=== PATIENT | female | born 1960 | race Caucasian/White ===

== ENCOUNTER 2018-10-23 12:10 | Emergency (ER) | payer BC, SELFPAY ==
[2018-10-23 12:15] VITALS: BP 165/85; PULSE 78; RESP 18; TEMP 36.7; O2SAT 98
[2018-10-23 12:27] VITALS: RESP 18
--- NOTE | 2018-10-23 13:10 | ED.GENADUL_ITS ---
Discharge Plan Disposition Patient Disposition: HOME Condition: Stable Discharge Details Chief Complaint: GenMedical Clinical Impression: Grief reaction, Elevated blood pressure reading Primary Care Provider: Molly Ross ED Provider: Orion Ramos Home Meds and New Rx's Prescriptions: Continued acetaminophen [Acetaminophen Extra Strength] 500 MG tablet 1,000 mg PO QID Qty: 100 RF: 12 gabapentin 300 mg capsule 300 mg PO as directed Qty: 270 RF: 12 hydrochlorothiazide 25 mg tablet 25 mg PO DAILY Qty: 90 RF: 4 citalopram 20 mg tablet 20 mg PO DAILY Qty: 90 RF: 4 ibuprofen 600 mg tablet 600 mg PO BID RF: 0 Discharge Instructions Instructions: Grief and Loss (ED), Hypertension (ED) Additional Instructions: Return immediately to the emergency department for any new or worsening symptoms. Otherwise stay well-hydrated and take medication as prescribed and follow-up with your primary care provider for reassessment Referrals: Molly Ross MD, [place] [Primary Care Provider] - 10/26/18 10:20 am Discharge Data Discharge Date/Time-TO BE ENTERED AT DEPARTURE: 10/23/18 13:40 Medical Decision Making Patient presenting to the emergency department for chief complaint of emotional grieving, syncope, and high blood pressure. Patient states that 3 days ago her significant other of 22 years suddenly and she found him lying on the floor and called 911. The ambulance crew checked her blood pressure which was elevated at that time but she refused coming to the emergency department. Patient did have multiple syncopal episodes during the event and throughout the evening after it occurred. Patient does state ongoing history of syncopal episodes with emotionally charged events such as when 1 of her children got hurt and when her first . She states Fridays night episode was very similar to the past. Patient denies hitting her head and states that she has been very tearful causing a intermittent headache but otherwise denies any focal neurological deficits, chest pain, shortness of breath. Physical exam is unremarkable with normal neurologic exam, normal cardiac and respiratory exam. Patient is present with sister whom states that they are mostly concerned about the emotional state that she has in and that previously she had been on antidepressants when her first . Patient also states this. Thorough discussion of elevated blood pressure was had with patient and blood pressure is mildly elevated today but patient has no signs of hypertensive urgen cy or emergency. Also did discuss with patient emotional emergencies and she states no homicidal or suicidal ideations and is alert and oriented.. I do feel it is reasonable to contact patient's primary care provider to discuss possible blood pressure control given the patient states history of elevated blood pressure readings along with starting patient on antidepressant. Spoke with Dr. Jose whom stated she would call hydrochlorothiazide in for the patient for blood pressure control and citalopram for depression. Otherwise I do not feel that there is any need for emergency work-up of labs, imaging, or further testing given that all of this seems to be surrounded by of loved one which is reasonable. Return precautions discussed. After discussion of diagnosis and plan of care patient had no further needs, questions, or concerns and states clear understanding to return to the emergency department for any worsening symptoms. HPI General Mode of arrival: ambulatory . Date/Time Provider Initiated Documentation: 10/23/18 12:21 . Limitations to Documentation: no limitations . Information obtained by: patient, family and RN notes reviewed . History of Present Illness 58 year old F presents to the emergency department with the chief complaint of Emotional grieving, syncope, described as similar to prior episodes, Quality is described as other (Denies pain), Patient started experiencing this day(s) (3) and it has been now resolved (Syncope resolved). Patient notes no other symptoms.. Patient did receive the following treatments prior to arrival, none Related Data Home Medications Medication Instructions Recorded Confirmed acetaminophen [Acetaminophen Extra 1,000 mg PO QID #100 tab-cap 11/16/16 10/23/18 Strength] gabapentin 300 mg capsule 300 mg PO as directed #270 tab-cap 09/01/18 10/23/18 citalopram 20 mg tablet 20 mg PO DAILY #90 tab 10/23/18 hydrochlorothiazide 25 mg tablet 25 mg PO DAILY #90 tab 10/23/18 ibuprofen 600 mg PO BID 10/23/18 10/23/18 Previous Rx's Medication Instructions Recorded gabapentin 300 mg capsule 300 mg PO as directed #270 tab-cap 09/01/18 citalopram 20 mg tablet 20 mg PO DAILY #90 tab 10/23/18 hydrochlorothiazide 25 mg tablet 25 mg PO DAILY #90 tab 10/23/18 Allergies Allergy/AdvReac Type Severity Reaction Status Date / Time Penicillins Allergy Intermediate unknown Unverified 10/23/18 12:18 happened as child, was told to neve use General Stated Complaint: GenMedical ALEKSANDAR: 3 Review of Systems Constitutional Denies chills, Denies fever(s), Reports headache(s) (Intermittent) and Denies malaise ENT Reports headache(s) (Intermittent) Cardiovascular Denies chest pain, Denies chest pain with activity, Reports syncope, Denies irregular heart rhythm, Denies palpitations and Denies dyspnea Respiratory Denies cough, Denies hemoptysis and Denies dyspnea Gastrointestinal Denies abdominal pain, Denies nausea and Denies vomiting Neurologic Reports syncope, Reports headache(s) (Intermittent), Denies focal weakness, Denies memory loss and Denies seizure-like activity Psychiatric Denies anxiety and Denies memory loss Endocrine Denies palpitations [facility] Surgical History BACK SURGERY Family History Mother No problems noted. Father Neoplasm Sister No problems noted. Brother No problems noted. Brother No problems noted. Brother No problems noted. Son No problems noted. Daughter No problems noted. Grandfather Neoplasm Grandfather No problems noted. Grandmother Asthma Grandmother No problems noted. Other Alcohol abuse Social History Smoking/Tobacco Use Status: Former Tobacco Use Drug use: Never Do you feel safe at home: Yes Do you feel safe in your relationship?: Yes Exam Const General: cooperative, healthy appearing, comfortable, no acute distress, not diaphoretic and not ill appearing Nutritional Appearance: average body habitus Orientation: alert, awake and oriented x3 Limitations: mental status not altered Neck Neck: normal visual inspection, full ROM, trachea midline, supple and no anterior neck swelling Thyroid: thyroid normal Carotids: normal carotid upstroke and no bruits Chest Chest: normal inspection of the chest Resp Effort & Inspection: normal respiratory effort and able to speak in complete sentences Auscultation: clear to auscultation bilaterally Cardio Jugular venous pressure: no JVD Palpation: normal PMI Rate: regular rate Rhythm: regular rhythm Heart Sounds: S1 normal, S2 normal, no click, no gallops, no murmurs and no rubs Bruits: no abdominal aortic bruits and no carotid bruits Pulses: radial pulses present bilaterally 2+ Skin General skin exam: no rashes or lesions noted Neuro General: alert, awake, oriented x3, tone normal and moves all extremities Course Vital Signs Temperature 36.7 C 10/23/18 12:15 Pulse 78 10/23/18 12:15 Respiratory Rate 18 10/23/18 12:15 Blood Pressure 165/85 H 10/23/18 12:15 Pulse Oximetry 98 10/23/18 12:15 Temperature 36.7 C 10/23/18 12:15 Pulse 78 10/23/18 12:15 Respiratory Rate 18 10/23/18 12:27 Respiratory Effort Non-Labored 10/23/18 12:27 Respiratory Depth Normal 10/23/18 12:27 Respiratory Pattern Normal 10/23/18 12:27 Blood Pressure 165/85 H 10/23/18 12:15 Pulse Oximetry 98 10/23/18 12:15 Oxygen Delivery Method Room Air 10/23/18 12:15 Oxygen Flow Rate 0 10/23/18 12:15 Pain Level 0 10/23/18 12:15
[2018-10-23 13:41] VITALS: BP 165/85; PULSE 78; RESP 18; TEMP 36.7; O2SAT 98
== END 2018-10-23 13:40 | disposition home or self-care (01) ==
PROVIDERS: Emergency Provider Nurse Practitioner Family; PCP Family Medicine
DX: F43.20 Adjustment disorder, unspecified (principal); R03.0 Elevated blood-pressure reading, without diagnosis of hypertension
CPT/HCPCS: 99283

== ENCOUNTER 2018-11-08 00:56 | Outpatient (CLI) | payer BC, SELFPAY ==
--- NOTE | 2018-11-08 06:41 | DI.US_ITS ---
SYMPTOM/DIAGNOSIS: DIARRHEA, ABD PAIN, AFTER EATING, R10.9 ABDOMEN ULTRASOUND: The aorta and vena cava are normal The liver is echogenic consistent with fatty infiltration. Cholelithiasis is demonstrated. The gallbladder wall may be mildly thickened. No pericholecystic fluid is evident. There is no evidence of ductal dilatation. The pancreas is unremarkable. The spleen is normal. The left kidney measures 10.2 by 4.8 by 5.3 cm. The right kidney measures 11.6 by 4.5 by 6.5 cm. SUMMARY: Findings consistent with a fatty liver and cholelithiasis. There may be mild thickening of the gallbladder wall. No pericholecystic fluid is demonstrated. There is no ductal dilatation and nothing specific to suggest acute cholecystitis.
== END 2018-11-08 01:16 ==
PROVIDERS: PCP Family Medicine; Visit Provider Family Medicine
DX: R10.9 Unspecified abdominal pain (principal); R19.7 Diarrhea, unspecified; K76.0 Fatty (change of) liver, not elsewhere classified; K80.20 Calculus of gallbladder without cholecystitis without obstruction
CPT/HCPCS: 76700

== ENCOUNTER 2018-12-04 02:32 | Outpatient (CLI) | payer BC, SELFPAY ==
[2018-12-04 11:00] LABS: ALT 24 U/L (12-78); AST 16 U/L (15-37); Albumin 3.8 g/dL (3.4-5.0); Alkaline Phosphatase 61 U/L (46-116); Anion Gap 8.9 mmol/L (3-11); BUN 18 mg/dL (7-18); Bilirubin, Total 0.4 mg/dL (0.2-1.0); CO2 28.1 mmol/L (21.0-32.0); CREATININE 0.75 mg/dL (0.55-1.02); Calcium 8.7 mg/dL (8.5-10.1); Calculated LDL 158; Chloride 106 mmol/L (98-107); Cholesterol 254 mg/dL (50-200); Glucose 110 mg/dL (70-100); HDL Cholesterol 48 mg/dL (40-60); Potassium 3.9 mmol/L (3.5-5.1); Sodium 143 mmol/L (136-145); TSH (W/Ref FT4) 2.41 uIU/mL (0.358-3.74); Total Protein 6.8 g/dL (6.4-8.2); Triglyceride 241 mg/dL (30-150)
== END 2018-12-04 02:52 ==
PROVIDERS: PCP Family Medicine; Visit Provider Family Medicine
DX: F32.9 Major depressive disorder, single episode, unspecified (principal); I10 Essential (primary) hypertension
CPT/HCPCS: 36415; 80053; 80061; 83721; 84443

== ENCOUNTER 2019-01-03 00:35 | Outpatient (CLI) | payer BC, SELFPAY ==
--- NOTE | 2019-01-03 13:52 | MERGE_ITS ---
*[facility]* *[facility]* [address] [place] [address] Date of study: 01/03/2019 Transthoracic Echocardiography M-mode, complete 2D, complete spectral Doppler, and color Doppler *STUDY CONCLUSIONS* Summary: 1. Left ventricle: The cavity size was normal. Wall thickness was normal. Systolic function was vigorous. The estimated ejection fraction was 65-70%. There was no dynamic obstruction. Wall motion was normal; there were no regional wall motion abnormalities. 2. Right ventricle: The cavity size was normal. Wall thickness was normal. Systolic function was normal. *PATIENT PRESENTATION* Height: 165.1cm (65in ) S/D Pressure: 139 / 74 Weight: 90.3kg (198.6lb ) BSA: 2.07m^2 Test start time: 02:11 PM. Test stop time: 03:00 PM. REFERRING Molly Ross PERFORMING Unknown PERFORMING [facility] ORDERING Precious Marin REFERRING Precious Marin [employer] Africa Thornton RT (R)(CT), [facility] *PROCEDURE DATA* Procedure information: This study was interpreted by [facility]. Pertinent images and digital data are archived for permanent storage and are available for subsequent review. No prior study was available for comparison. Study status: Routine. Transthoracic echocardiography. M-mode, complete 2D, complete spectral Doppler, and color Doppler. A Transthoracic Echocardiogram was performed. Scanning was performed from the parasternal, apical, subcostal, and suprasternal notch acoustic windows. Images were obtained using an [id number] cardiac ultrasound machine. Image quality was adequate. Study completion: The patient tolerated the procedure well. There were no complications. History: PMH: New cardiac murmur r01.1. *CARDIAC ANATOMY* Left ventricle: The cavity size was normal. Wall thickness was normal. Systolic function was vigorous. The estimated ejection fraction was 65-70%. There was no dynamic obstruction. Wall motion was normal; there were no regional wall motion abnormalities. Diastolic parameters were normal. Aortic valve: Trileaflet; normal thickness leaflets. Mobility was not restricted. Doppler: Transvalvular velocity was within the normal range. There was no stenosis. There was no significant regurgitation. VTI ratio of LVOT to aortic valve: 0.64. Valve area (VTI): 1.7cm^2. Indexed valve area (VTI): 0.8cm^2/m^2. Peak velocity ratio of LVOT to aortic valve: 0.66. Valve area (Vmax): 1.8cm^2. Indexed valve area (Vmax): 0.8cm^2/m^2. Mean velocity ratio of LVOT to aortic valve: 0.72. Valve area (Vmean): 1.9cm^2. Indexed valve area (Vmean): 0.9cm^2/m^2. Mean gradient (S): 5.5mm Hg. Peak gradient (S): 14.3mm Hg. Aorta: Aortic root: The aortic root was normal in size. Ascending aorta: The ascending aorta was normal in size. Mitral valve: Structurally normal valve. Mobility was not restricted. Doppler: Transvalvular velocity was within the normal range. There was no evidence for stenosis. There was no significant regurgitation. Valve area by pressure half-time: 3.8cm^2. Indexed valve area by pressure half-time: 1.8cm^2/m^2. Peak gradient (D): 5.8mm Hg. Left atrium: The atrium was normal in size. Right ventricle: The cavity size was normal. Wall thickness was normal. Systolic function was normal. Pulmonic valve: Structurally normal valve. Doppler: Transvalvular velocity was within the normal range. There was no evidence for stenosis. There was no significant regurgitation. Peak gradient (S): 2.7mm Hg. Tricuspid valve: Structurally normal valve. Doppler: Transvalvular velocity was within the normal range. There was no evidence for stenosis. There was no significant regurgitation. Pulmonary artery: Systolic pressure could not be accurately estimated. Right atrium: The atrium was normal in size. Pericardium: There was no pericardial effusion. Systemic veins: Inferior vena cava: Well visualized. The vessel was patent and normal in size. The respirophasic diameter changes were in the normal range (greater than or equal to 50%). Baseline ECG: Sinus bradycardia. Measurements Left ventricle Value Reference LV ID, ED, PLAX 4.4 cm 3.5 - 6.0 LV ID, ES, PLAX 2.6 cm 2.1 - 4.0 LV PW thickness, ED, PLAX 1.0 cm LV end-diastolic volume, 1-p A2C 70 ml LV ejection fraction, 1-p A2C 64 % LV end-diastolic volume, 1-p A4C 83 ml LV ejection fraction, 1-p A4C 71 % LV e', lateral 0.118 m/sec LV E/e', lateral 10 LV e', medial 0.074 m/sec LV E/e', medial 16 LV e', average 0.096 m/sec LV E/e', average 13 Ventricular septum Value Reference IVS thickness, ED, PLAX 1.2 cm LVOT Value Reference LVOT ID, A-P 1.8 cm LVOT area 2.7 cm^2 LVOT peak velocity, S 1.25 m/sec LVOT mean velocity, S 0.79 m/sec LVOT VTI, S 26.3 cm LVOT peak gradient, S 6.3 mm Hg LVOT mean gradient, S 2.9 mm Hg Stroke volume (SV), LVOT DP 70 ml Stroke index (SV/bsa), LVOT DP 34 ml/m^2 Aortic valve Value Reference Aortic valve peak velocity, S 1.9 m/sec Aortic valve mean velocity, S 1.1 m/sec Aortic valve VTI, S 41.0 cm Aortic mean gradient, S 5.5 mm Hg Aortic peak gradient, S 14.3 mm Hg VTI ratio, LVOT/AV 0.64 Aortic valve area, VTI 1.7 cm^2 Velocity ratio, peak, LVOT/AV 0.66 Aortic valve area, peak velocity 1.8 cm^2 Velocity ratio, mean, LVOT/AV 0.72 Aortic valve area, mean velocity 1.9 cm^2 Aortic valve area/bsa, mean velocity 0.9 cm^2/m^2 Aorta Value Reference Aortic root ID, ED 2.6 cm Ascending aorta ID, A-P, S 3.0 cm Left atrium Value Reference LA ID, A-P, ES 4.7 cm LA ID/bsa, A-P (H) 2.3 cm/m^2 <=2.2 LA volume/bsa, ES, 1-p A4C 29 ml/m^2 LA volume, ES, 2-p 46 ml LA volume/bsa, ES, 2-p 22 ml/m^2 LA/aortic root ratio 1.78 Mitral valve Value Reference Mitral E-wave peak velocity 1.21 m/sec Mitral A-wave peak velocity 0.83 m/sec Mitral deceleration time 200 ms 150 - 230 Mitral pressure half-time 58 ms Mitral peak gradient, D 5.8 mm Hg Mitral E/A ratio, peak 1.45 Mitral valve area, PHT, DP 3.8 cm^2 Pulmonary veins Value Reference Pulmonary vein peak velocity, S 0.72 m/sec Pulmonary vein peak velocity, D 0.81 m/sec Pulmonary vein velocity ratio, peak, 0.89 S/D Pulmonary vein A-wave reversal peak 0.32 m/sec velocity Pulmonary vein A-wave reversal 171 ms duration Tricuspid valve Value Reference Tricuspid regurg peak velocity 2.6 m/sec Tricuspid peak RV-RA gradient 26.2 mm Hg Right atrium Value Reference RA area, ES, A4C 12.5 cm^2 8.3 - 19.5 Pulmonic valve Value Reference Pulmonic peak gradient, S 2.7 mm Hg Pulmonic regurg velocity, ED 0.81 m/sec Legend: (L) and (H) swati values outside specified reference range. I have personally reviewed the images and have reviewed and edited the reported findings. Electronically signed by Thony York 01/03/2019 15:39
== END 2019-01-03 00:55 ==
PROVIDERS: PCP Family Medicine; Visit Provider Surgery
DX: R01.1 Cardiac murmur, unspecified (principal)
CPT/HCPCS: 93306

== ENCOUNTER 2019-06-12 12:26 | Outpatient (REF) | payer BC, SELFPAY ==
--- NOTE | 2019-06-12 11:30 | PAPFT_PTH ---
PATIENT: Luci Aburto LOC: [facility] U#:[id number] AGE/SX: 58/F ROOM: RE06/12/[address]: Molly Ross MD, DC : 1960 BED: DIS: 06/12/2019 SPEC #: [id number] RECD: 06/12/19 12:55 STATUS: MICK REQ #: [id number] DOTTIE: 06/12/19 11:[address]: Molly Ross DEPT: [facility] Cytology RECD BY: Juanis Dykes Tissues: 1 - CX/ENDOCX FOR PAP SMEARS Procedures: PAP THIN PREP/UVM Screening HPV DNA PROBE Comments: [id number]
== END 2019-06-12 12:46 ==
LOC: LBN 12:26
PROVIDERS: PCP Family Medicine; Visit Provider Family Medicine
DX: Z12.4 Encounter for screening for malignant neoplasm of cervix (principal); Z11.51 Encounter for screening for human papillomavirus (HPV)
CPT/HCPCS: 88142; 87624

== ENCOUNTER 2019-07-11 01:21 | Outpatient (CLI) | payer BC, SELFPAY ==
--- NOTE | 2019-07-11 16:20 | DI.MAMMO_ITS ---
EXAM: MAMMO SCREENING CLINICAL HISTORY: screening Z12.39 TECHNIQUE: Mammograms were interpreted according to the usual protocol including computer analysis w [employer] CAD system, tomosynthesis and C-view imaging. FINDINGS: The breasts are of moderate density with fairly symmetrical distribution of fibroglandular tissue. N o dominant mass or clumped microcalcification is identified in either breast. Current examination is compared with previous examinations including December 2015 and there has been no gross interval change in appearance in comparison with the previous studies. IMPRESSION: No specific evidence of malignancy at this time. Routine screening examinations are suggested at year ly intervals due to the family history of breast carcinoma. Category 1. Breast density, category,B. BI-RADS Cat 1 - Negative. Breast Density - Category B - Scattered areas of fibroglandular density.
== END 2019-07-11 01:41 ==
PROVIDERS: PCP Family Medicine; Visit Provider Family Medicine
DX: Z12.31 Encounter for screening mammogram for malignant neoplasm of breast (principal); Z80.3 Family history of malignant neoplasm of breast
CPT/HCPCS: 77063; 77067

== ENCOUNTER 2019-08-22 01:53 | Outpatient (CLI) | payer BC, SELFPAY ==
--- NOTE | 2019-08-22 15:00 | DI.CTLCSR_ITS ---
EXAM: CT CHEST LUNG CANCER SCREEN CLINICAL HISTORY: The patient reportedly has a History of Smoking 30 pack years and presently smokes or has quit the past 15 years. TECHNIQUE: Imaging Protocol: Axial computed tomography images with coronal and sagittal reformatted images were created and reviewed COMPARISON: CHEST WITH CONTRAST from 08/31/2016 FINDINGS: Tracheobronchial tree: Patent where visualized. Mediastinum and Precious: No dominant adenopathy or fluid collection. Pulmonary parenchyma: No consolidation or dominant measurable mass. No architectural distortion. Mini mal scarring and minimal emphysematous changes. Lung Nodules: None. Pleura: No effusion or pneumothorax. Heart: The heart is not dilated. No coronary artery calcifications are seen. Aorta: Thoracic aorta non-dilated. Minimal aortic calcification. Upper abdomen: Unremarkable. Bones: Degenerative disc changes are prominent in the midthoracic region. Soft Tissues: Unremarkable. IMPRESSION: Lung RADS Cat 1 - Negative: No nodules and definitely benign nodules. Annual low-dose screening CT i s recommended. Lung-RADS 1.0 CATEGORIES: Category 0 - Prior chest CT exam(s) being located for comparison. Category 1 - Annual screening in 12 months. No nodules or definitely benign nodules. Category 2 - Annual screening in 12 months. Benign appearance. Nodules with low likelihood of becomin g active cancer. Category 3 - 6-month follow-up. Probably benign. Short-term follow-up suggested. Nodules with low lik elihood of becoming active cancer. Category 4A - 3-month follow-up and CT/PET if >8 mm in size. Suspicious finding. Findings which requi re additional testing. Category 4B - Findings which require additional testing and tissue sampling. Suspicious finding. C Added to Any of the Above - History of prior lung cancer screening. S Added to Any of the Above - Significant unexpected other finding. RADIATION DOSE DELIVERED: DATA REPOSITORY: All CT scans at this facility are submitted to the National Radiology Data Registry (NRDR) Dose Index Registry (DIR) with the [employer] (ACR). RADIATION OPTIMIZATION: All CT scans at this facility use at least one of these dose optimization te chniques: automated exposure control; mA and/or kV adjustment per patient size (includes targeted exa ms where dose is matched to clinical indication); or iterative reconstruction.
== END 2019-08-22 02:13 ==
PROVIDERS: PCP Family Medicine; Visit Provider Family Medicine
DX: Z12.2 Encounter for screening for malignant neoplasm of respiratory organs (principal); Z87.891 Personal history of nicotine dependence
CPT/HCPCS: G0297

== ENCOUNTER 2020-06-10 02:58 | Outpatient (CLI) | payer BC, SELFPAY ==
[2020-06-10 13:17] LABS: ALT 30 U/L (14-59); AST 19 U/L (15-37); Albumin 3.8 g/dL (3.4-5.0); Alkaline Phosphatase 51 U/L (46-116); Anion Gap 7.8 mmol/L (3-11); BUN 18 mg/dL (7-18); Bilirubin, Total 0.3 mg/dL (0.2-1.0); CO2 29.2 mmol/L (21.0-32.0); CREATININE 0.94 mg/dL (0.55-1.02); Calcium 8.8 mg/dL (8.5-10.1); Calculated LDL 130 mg/dL (<100); Chloride 106 mmol/L (98-107); Cholesterol 235 mg/dL (<200); Glucose 109 mg/dL (74-106); HDL Cholesterol 50 mg/dL (40-60); Potassium 3.9 mmol/L (3.5-5.1); Sodium 143 mmol/L (136-145); Total Protein 6.9 g/dL (6.4-8.2); Triglyceride 275 mg/dL (<150)
[2020-06-11 10:25] LABS: Hepatitis C Ab w Rflx HCV PCR Negative (Negative)
== END 2020-06-10 03:18 ==
PROVIDERS: PCP Family Medicine; Visit Provider Family Medicine
DX: Z00.00 Encounter for general adult medical examination without abnormal findings (principal); Z13.220 Encounter for screening for lipoid disorders; Z11.59 Encounter for screening for other viral diseases
CPT/HCPCS: 36415; 80053; 80061; 86803

== ENCOUNTER 2021-05-05 12:58 | Outpatient (CLI) | payer OTHER, SELFPAY ==
--- NOTE | 2021-05-05 12:00 | DI.RAD_ITS ---
Exam(s) XR THUMB LT EXAM: XR THUMB LT CLINICAL HISTORY: fall 05/04/21 - pain and swelling M79.646 TECHNIQUE: COMPARISON: No exams were available for comparison FINDINGS: Three views were obtained. There is moderate to severe loss of the cartilaginous joint space at the greater multangular 1st metacarpal joint. There may be slight narrowing of the cartilaginous joint s paces of the IP joints the hand including the thumb. Mild marginal osteophytes are noted at the grea ter multangular 1st metacarpal joint and the IP joints of the thumb. There is a tiny lin of calcific or ossific material at the volar aspect of the base of the distal p halanx. Although this is probably chronic, a small avulsion could not be excluded. Please correlate clinically. IMPRESSION: RADIATION DOSE DELIVERED: Total DLP
== END 2021-05-05 13:18 ==
PROVIDERS: PCP Family Medicine; Visit Provider Family Medicine
DX: M79.646 Pain in unspecified finger(s) (principal); R93.6 Abnormal findings on diagnostic imaging of limbs
CPT/HCPCS: 73140

== ENCOUNTER 2021-07-27 01:37 | Outpatient (CLI) | payer BC, SELFPAY ==
[2021-07-27 10:41] LABS: Hemoglobin A1C 6.4 % (<5.7)
[2021-07-27 11:05] LABS: ALT 34 U/L (14-59); AST 21 U/L (15-37); Alkaline Phosphatase 63 U/L (46-116); Anion Gap 9.8 mmol/L (3-11); BUN 16 mg/dL (7-18); Bilirubin, Total 0.4 mg/dL (0.2-1.0); CO2 28.2 mmol/L (21.0-32.0); CREATININE 0.8 mg/dL (0.55-1.02); Calcium 9.3 mg/dL (8.5-10.1); Chloride 103 mmol/L (98-107); Cholesterol 289 mg/dL (<200); Glucose 99 mg/dL (74-106); HDL Cholesterol 53 mg/dL (40-60); Potassium 3.9 mmol/L (3.5-5.1); Sodium 141 mmol/L (136-145); Total Protein 7.3 g/dL (6.4-8.2); Triglyceride 422 mg/dL (<150)
[2021-07-27 11:16] LABS: LDL CHOLESTEROL 170 mg/dL (<100)
== END 2021-07-27 01:38 | disposition home or self-care (01) ==
LOC: LBO 01:37
PROVIDERS: PCP Family Medicine; Visit Provider Family Medicine
DX: Z00.00 Encounter for general adult medical examination without abnormal findings (principal); E11.9 Type 2 diabetes mellitus without complications
CPT/HCPCS: 36415; 80053; 80061; 83721; 83036

== ENCOUNTER 2021-12-01 19:14 | Outpatient (CLI) | payer BC, SELFPAY ==
--- NOTE | 2021-12-01 19:30 | DI.RAD_ITS ---
Exam(s) XR FOOT RT COMPLETE EXAM: XR FOOT RT COMPLETE CLINICAL HISTORY: eval for fx. TECHNIQUE: 2D digital imaging was performed of the right foot. Three images were obtained. AP, obl ique and lateral views were obtained. COMPARISON: No exams were available for comparison FINDINGS: BONES: On the oblique view there is a cortical defect at the lateral aspect of the base of the distal phalanx of the great toe. Fracture cannot be excluded. Please correlate with patient's site of paulino n. No bony destructive lesion is seen. JOINTS: No dislocation present. SOFT TISSUE: Normal. IMPRESSION: Apparent cortical defect at the lateral aspect of the base of the distal phalanx of the great toe. T his may represent a fracture. Correlate with patient's site of pain. DATA REPOSITORY: RADIATION DOSE DELIVERED:
--- NOTE | 2021-12-01 20:45 | DI.VRAD_ITS ---
PROCEDURE INFORMATION: Exam: XR Right Foot Exam date and time: 12/01/2021 7:40 PM Age: 61 years old Clinical indication: Patient HX: Right foot pain, eval for FX TECHNIQUE: Imaging protocol: Radiologic exam of the Right foot. Views: 3 or more views. COMPARISON: No relevant prior studies available. FINDINGS: Bones/joints: Normal. Soft tissues: Normal. IMPRESSION: No evidence for acute posttraumatic abnormality. Dictated and Authenticated by: Izzy Talley MD. Ordering:SOBEIDA Andrews MD
== END 2021-12-01 19:34 ==
PROVIDERS: PCP Family Medicine; Visit Provider Nurse Practitioner Family
DX: M79.671 Pain in right foot (principal); M20.5X1 Other deformities of toe(s) (acquired), right foot
CPT/HCPCS: 73630

== ENCOUNTER → 2022-01-29 00:30 | Outpatient (CLI) | payer BC, SELFPAY ==
--- OUTSIDE RECORDS SUMMARY | 2022-01-29 00:31 | XMS_ITS | Encounter Summary ---
:1960 Author Organization [facility] Address [address] [place] [address] Care Team Providers Name Role Phone Unknown, Provider Primary Care Provider Encounter Details Date Type Department Care Team Description 12/09/2015 Results Only [facility] Molly Ross MD [phone] [place] [phone] (Wo rk) Social History Tobacco Use Types Packs/Day Years Used Date Never Assessed Sex Assigned at Date Recorded Not on file documented as of this encounter Plan of Treatment Not on filedocumented as of this encounter Procedures Procedure Name Priority Date/Time Associated Diagnosis Comme nts PAP TEST- RESULT Routine 12/09/2015 0:00 EDT Resu lts for this ONLY procedure are i n the results section. documented in this encounter Results PAP TEST- RESULT ONLY (12/09/2015 0:00 EDT) Pathology Report: CYTOPATHOLOGY REPORT [facility] Reports generated via electronic interface contain lew ginal data; SERVICES however they are lacking the format of the original re port. Caution should be taken when reading/interpreting unfo rmatted reports. Name: ? AIXA DELGADO ? Accession #: ? [id number] ? : ? 1960 (Age: [age]) ??F ?Collect Date: ? 12/09/2015 ? Location: ? [facility] ? Receive Date: ? 12/11/19 16 ? Provider: MOLLY ROSS MD Copy to: ? Final Report SPECIMEN ADEQUACY ? Satisfactory for Evaluation - transformation zone component present GENERAL CATEGORIZATION ? Negative for Intraepithelial Lesion or Malignan cy INTERPRETATION ? Reactive cellular lj nges associated with inflammation present (includes repair). Shift in nico present suggestive of bacterial vaginos is. 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 KAITY GRANT MD ? Report ??Date: 12/25/2015 11:40 HPV with Pap Test ? Date Ordered: ? 12/25/2015 ? Status: ?? Signed Out ?Date Complete: ? 12/29/2015 ? By: ??Sy stem Interface ? Date Reported: ? 12/29/2015 ? Interpretation RESULT: Negative for HPV. No E6 or E7 mRNA is detected from HPV types 16,18,31,3 3,35, 39,45,51,52,56,58,59,66, and 68 by business continuity director media garfield amplification. Comments Document reviewed and electronically signed by: ? System Interface ? Report date: 12/29/2015 By the signature above, the attending physician certif ies that he/she has personally conducted a gross and/or microscopic examin ation of the described specimens and rendered or confirmed the above diagnosi s. End of Report Specimen Performing Organization Address City/State/ZIP Code Phon e Number [facility] [address] [place] [address] SERVICES documented in this encounter Visit Diagnoses Not on filedocumented in this encounter Care Teams Heating Plant Superintendent Relationship Specialty Start Date End Date Unknown, Provider, PCP - General 04/19/15 documented as of this encounter
--- OUTSIDE RECORDS SUMMARY | 2022-01-29 00:31 | XMS_ITS | Encounter Summary ---
:1960 Author Organization [facility] Address [address] [place] [id number] Care Team Providers Name Role Phone Unavailable Primary Care Provider Unavailable Encounter Details Date Type Department Care Team Description 12/12/2012 Results Only [facility] Elida Ross MD Laboratory Services - [address] [place] [address] [address] [place] [phone] (Wo rk) Social History Tobacco Use Types Packs/Day Years Used Date Never Assessed Sex Assigned at Date Recorded Not on file documented as of this encounter Plan of Treatment Not on filedocumented as of this encounter Procedures Procedure Name Priority Date/Time Associated Diagnosis Comme nts PAP TEST- RESULT Routine 12/12/2012 0:00 EDT Resu lts for this ONLY procedure are i n the results section. documented in this encounter Results PAP TEST- RESULT ONLY (12/12/2012 0:00 EDT) Pathology Report: CYTOPATHOLOGY REPORT [facility] Reports generated via electronic interface contain lew ginal data; however they are lacking the format of the original re port. Caution should be taken when reading/interpreting unfo rmatted reports. Name: ? AIXA DEGLADO ? Accession #: ? [id number] ? : ? 1960 (Age: 52) ??F ?Collect Da te: ? 12/12/2012 ? Location: ? [facility] ? Receive Date: ? 013 ? Provider: JIMY ROSS MD Copy to: ? Final Report SPECIMEN ADEQUACY ? Satisfactory for Evaluation - transformation zone component present GENERAL CATEGORIZATION ? Negative for Intraepithelial Lesion or Malignan cy INTERPRETATION ? Reactive cellular lj nges associated with inflammation present (includes repair). Menstrual/ Status: ??Post Menopausal Specimen/Source: ??Pap Test, Cervix/Endocervix, ThinPr ep Imaging System with manual evaluation Document reviewed and electronically signed by: ? SOBEIDA FOLEY MD [facility] ? Report ??Date: 12/25/2012 10:34 HPV with Pap Test ? Date Ordered: ? 12/25/2012 ? Status: ?? Signed Out ?Date Complete: ? 12/27/2012 ? By: ??S ystem Interface ? Date Reported: ? 12/27/2012 ? Interpretation RESULT: Negative for HPV. No E6 or E7 mRNA is detected from HPV types 16,18,31,3 3,35, 39,45,51,52,56,58,59,66, and 68 by tree specialist media garfield amplification. Comments Document reviewed and electronically signed by: ? System Interface ? Report date: 12/27/2012 By the signature above, the attending physician certif ies that he/she has personally conducted a gross and/or microscopic examin ation of the described specimens and rendered or confirmed the above diagnosi s. End of Report Specimen Performing Organization Address City/State/ZIP Code Phon e Number [facility] [address] [place] [address] SERVICES [facility] [address] [place] [address] documented in this encounter Visit Diagnoses Not on filedocumented in this encounter
--- OUTSIDE RECORDS SUMMARY | 2022-01-29 00:31 | XMS_ITS | Encounter Summary ---
:1960 Author Organization [facility] Address [address] [place] [address] Care Team Providers Name Role Phone Unknown, Provider MD Primary Care Provider Encounter Details Date Type Department Care Team Description 06/14/2019 Lab Requisition [facility] Molly Ross, Encounter for other Pathology & MD general examination Laboratory Medicine [address] [place] [address] [address] [place] [address] [phone] Social History Tobacco Use Types Packs/Day Years Used Date Never Assessed Sex Assigned at Date Recorded Not on file documented as of this encounter Plan of Treatment Not on filedocumented as of this encounter Procedures Procedure Name Priority Date/Time Associated Comments Diagnosis PAP TEST Today 06/12/2019 11:30 Encounter for other Resu lts for this EST general examination procedur e are in the results section. HUMAN PAPILLOMAVIRUS Today 06/12/2019 11:30 Encounter for ot her Results for this (HPV) DETECTION-HIGH EST general examination procedure are in RISK TYPES the results section. documented in this encounter Results HUMAN PAPILLOMAVIRUS (HPV) DETECTION-HIGH RISK TYPES (06/12/2019 11:30 EST) Pathologist Sig nature Human Papillomavirus Negative Negative [facility] (HPV) Detection-High LABORATORY SERVICES Types Specimen Pap Test - Cervix and/or Endocervix Performing Organization Address City/State/ZIP Code Phon e Number [facility] [address] [place] [address] SERVICES PAP TEST (06/12/2019 11:30 EST) Specimens A. Cervix and/or [facility] Endocervix, , CENTER ThinPrep Imaging LABORATORY System with Manual SERVICES Evaluation Specimen Adequacy Satisfactory for [facility] Evaluation - CENTER transformation zone LABORATORY component present SERVICES General Negative for [facility] Categorization intraepithelial CENTER lesion or malignancy LABORATORY SERVICES Descriptive Shift in nico [facility] Diagnosis present suggestive of CENTER bacterial vaginosis. LABORATORY SERVICES Attestation . [facility] signed by KIARA Mac CT(ASCP) on SERVICES 06/21/2019 at 131 3 Clinical History SEE ORDER COMMENTS [facility] SERVICES HPV The result for the Human Pap illomavirus (HPV) Detection-High Risk Types is Negative. No E6 or E7 mRNA is detected from HPV types 16,18,31,33,35,39,45,51,52,56,58,59,66, and 68 by cylinder press operator helper mediated [facility] amplification.Testing was pe rformed on specimen [id number] and was resulted on 06/19/2019 1846 EST by KAYE, LAB INSTRUMENT RESULTS IN [facility] SERVICES Scanned Images [facility] SERVICES Specimen Pap Test - Cervix and/or Endocervix Performing Organization Address City/State/ZIP Code Phon e Number [facility] [address] [place] [address] SERVICES documented in this encounter Visit Diagnoses Diagnosis Encounter for other general examination documented in this encounter Care Teams It Compliance Manager Relationship Specialty Start Date End Date Unknown, Provider, PCP - General 04/19/15 documented as of this encounter
--- OUTSIDE RECORDS SUMMARY | 2022-01-29 00:31 | XMS_ITS | Encounter Summary ---
:1960 Author Organization [facility] Address [facility] [place] [address] Care Team Providers Name Role Phone Kayode Gabriel MD, Surya Primary Care Provider Encounter Details Date Type Department Care Team Description 07/21/2015 Interpretation Only [facility] [address] [place] [address] PATTI Beasley [phone] Social History Tobacco Use Types Packs/Day Years Used Date Never Assessed Sex Assigned at Date Recorded Not on file documented as of this encounter Plan of Treatment Not on filedocumented as of this encounter Procedures Procedure Name Priority Date/Time Associated Diagnosis Comme nts XR FLUORO NO RAD Routine 07/21/2015 6:26 AM Resul ts for this <1HR - RADIOLOGY EST procedure a re in USE the results section. documented in this encounter Results XR Fluoro <1Hr - Radiology Use (07/21/2015 6:26 AM EST) Anatomical Region Laterality Modality N/A Radiographic Imaging Specimen (Source) Anatomical Collection Method Collection Time Re ceived Time Location / / Volume Laterality 07/21/2015 6:26 AM EST Narrative 07/21/2015 6:26 AM EST [facility] Historical Result Principal Margarine Churn Operator: ??CYNDY ??ACOST A C-ARM: HISTORY: ??Right L3-4 MLD. COMPARISON: ??None. FINDINGS: Fluoroscopy was provided for Dr Sharma. ? ?No Radiologist was present for the procedure. ??Three image-intensifier images of the lateral lumbosacral spine were archived to PACS, demonstrating radiopaque instruments in the posterior soft tissue s centered at L3-4. ??Please refer to separate procedure report. ??Total fluoro time equals 8.5 seconds. ??The estimated cumulative dose is 7.15 mGy. Cyndy Jimenez, MD Sam [id number] Procedure Note Unknown - 12/11/2018Formatting of this n ote might be different from the original. [facility]D Historical Result Principal Margarine Churn Operator: CYNDY JIMENEZ C-ARM: HISTORY: Right L3-4 MLD. COMPARISON: None. FINDINGS: Fluoroscopy was provided for Dr Sharma. N o Radiologist was present for the procedure. Three image-intensifier images of the lateral lumbosacral spine were archived to PACS, demonstrating radiopaque instruments in the posterior soft tissue s centered at L3-4. Please refer to separate procedure report. Total fluoro time equals 8.5 se conds. The estimated cumulative dose is 7.15 mGy. Cyndy Jimenez MD Sam [id number] Unknown IMG FLUORO ORDERABLES documented in this encounter Visit Diagnoses Not on filedocumented in this encounter Care Teams Die Casting Machine Maintainer Relationship Specialty Start Date End Date Surya Headley MD PCP - General 05/05/[address] [place] [phone] documented as of this encounter
--- OUTSIDE RECORDS SUMMARY | 2022-01-29 00:31 | XMS_ITS | Encounter Summary ---
:1960 Author Organization [facility] Address [address] [place] [address] Care Team Providers Name Role Phone Unavailable Primary Care Provider Unavailable Encounter Details Date Type Department Care Team Description 01/17/2007 Results Only [facility] - William Baumann PA conversion [address] [phone] Social History Tobacco Use Types Packs/Day Years Used Date Never Assessed Sex Assigned at Date Recorded Not on file documented as of this encounter Plan of Treatment Not on filedocumented as of this encounter Procedures Procedure Name Priority Date/Time Associated Diagnosis Comme nts CYTOPATHOLOGY Routine 01/17/2007 0:00 EDT Results for this procedure are i n the results section . documented in this encounter Results CYTOPATHOLOGY (01/17/2007 0:00 EDT) Pathology Report: CYTOPATHOLOGY REPORT [facility] Reports generated via electronic interface contain lew ginal data; however they are lacking the format of the original re port. Caution should be taken when reading/interpreting unfo rmatted reports. Name: ? AIXA DELGADO ? Accession #: ? [id number] : ? 1960 (Age: 46) ??F ?Collect Date: ? 12/2006 Location: ? [facility] ? Receive Date : ? 01/18/2007 Provider: ?WILLIAM HASKINS Copy to: ? Specimen/Source: ?ThinPrep Pap Test, E ndocervix, processed on [email or web address] ThinPrep Imaging System, with manual evaluation Last Menstrual Period: ? Menstrual/ Status: ? Post Menopausal Other: ? HPVA - HPV testing requested if ASC-US on the current ThinPrep Pap test. ? SPECIMEN ADEQUACY ? Satisfactory for Evaluation - transformation zone component present GENERAL CATEGORIZATION ? Negative for Intraepithelial Lesion or Malignan cy ? Document reviewed and electronically signed by: ? ALLYN Castorena(ASCP) ? Report Date: ??01/23/2007 11:57 End of Report Specimen Performing Organization Address City/State/ZIP Code Phon e Number [facility] [address] [place] [address] SERVICES [facility] [address] [place] [address] documented in this encounter Visit Diagnoses Not on filedocumented in this encounter
--- NOTE | 2022-01-29 07:15 | DI.MAMMO_ITS ---
Exam(s) MAMMO SCREENING EXAM: MAMMO SCREENING CLINICAL HISTORY: screening,z12.39 TECHNIQUE: Mammograms were interpreted according to the usual protocol including computer analysis w [employer] CAD system, tomosynthesis and C-view imaging. COMPARISON: 2012 through 2019 FINDINGS: The breasts are composed of mainly fatty density , Breast Density category A. No suspicious masses or suspicious microcalcifications are seen. No skin thickening or abnormal axillary lymph nodes are seen. There has been no significant change from prior exams. IMPRESSION: BI-RADS Category 1, Negative mammogram Yearly screening mammography is recommended. Breast Density - Category A, fatty density. A negative radiographic report should not delay biopsy if a dominant or clinically suspicious mass is present. Up to ten percent of cancers are not identified on mammography. A negative report may reinforce clinical impression. Adenosis and dense breasts may obscure an underlying neoplasm. False positive reports average 6 to 10%. Patient will receive a letter notifying them of these results.
== END ==
PROVIDERS: PCP Family Medicine; Visit Provider Family Medicine
DX: Z12.31 Encounter for screening mammogram for malignant neoplasm of breast (principal)
CPT/HCPCS: 77063; 77067

== ENCOUNTER 2022-08-06 01:47 | Outpatient (CLI) | payer BC, SELFPAY ==
[2022-08-06 13:09] LABS: Hemoglobin A1C 6.4 % (<5.7)
[2022-08-06 13:22] LABS: Microalb ug/mg Crea 17.2 ug/mg Cr
[2022-08-06 13:41] LABS: ALT 31 U/L (14-59); AST 20 U/L (15-37); Albumin 4.1 g/dL (3.4-5.0); Alkaline Phosphatase 58 U/L (46-116); Anion Gap 8.5 mmol/L (3-11); BUN 20 mg/dL (7-18); Bilirubin, Total 0.4 mg/dL (0.2-1.0); CO2 29.5 mmol/L (21.0-32.0); CREATININE 0.8 mg/dL (0.55-1.02); Calcium 9.5 mg/dL (8.5-10.1); Chloride 106 mmol/L (98-107); Cholesterol 301 mg/dL (<200); Estimated GFR 82.74 (mL/min/1.73m2); Glucose 124 mg/dL (74-106); HDL Cholesterol 57 mg/dL (40-60); Potassium 3.8 mmol/L (3.5-5.1); Sodium 144 mmol/L (136-145); Total Protein 7.5 g/dL (6.4-8.2); Triglyceride 410 mg/dL (<150)
[2022-08-06 13:53] LABS: LDL CHOLESTEROL 177 mg/dL (<100)
== END 2022-08-06 01:48 | disposition home or self-care (01) ==
LOC: LOS 01:47
PROVIDERS: PCP Family Medicine; Visit Provider Family Medicine
DX: Z00.00 Encounter for general adult medical examination without abnormal findings (principal); E11.9 Type 2 diabetes mellitus without complications; I10 Essential (primary) hypertension
CPT/HCPCS: 36415; 80053; 80061; 83721; 82043; 82570; 83036

== ENCOUNTER 2022-08-16 09:23 | Outpatient (REF) | payer BC, SELFPAY ==
--- NOTE | 2022-08-16 08:30 | PAPFT_PTH ---
PATIENT: Luci Aburto LOC: [facility] U#:[id number] AGE/SX: 61/F ROOM: RE08/16/[address]: Molly Ross MD, DC : 1960 BED: DIS: 08/16/2022 SPEC #: [id number] RECD: 08/16/22 13:14 STATUS: MICK REQ #: [id number] DOTTIE: 08/16/22 08:[address]: Molly Ross [facility] Cytology RECD BY: Juanis Dykes Tissues: 1 - CX/ENDOCX FOR PAP SMEARS Procedures: PAP THIN PREP/[facility] Screening HPV DNA PROBE Comments: [id number]
== END 2022-08-16 09:24 | disposition home or self-care (01) ==
LOC: LBN 09:23
PROVIDERS: PCP Family Medicine; Visit Provider Family Medicine
DX: Z12.4 Encounter for screening for malignant neoplasm of cervix (principal); Z11.51 Encounter for screening for human papillomavirus (HPV)
CPT/HCPCS: 88142; 87624

== ENCOUNTER → 2023-02-10 00:07 | Outpatient (CLI) | payer BC, SELFPAY ==
--- NOTE | 2023-02-10 08:15 | DI.DEXA_ITS ---
Exam(s) XR DEXA BONE DENSITY W/WO LIEN EXAM: XR DEXA BONE DENSITY W/WO LIEN CLINICAL HISTORY: post menopausal, Z78.0 asymptomatic menopausal state TECHNIQUE: COMPARISON: No exams were available for comparison FINDINGS: Lateral Spine Image: Unremarkable. No compression deformities identified. Left hip: Total T-Score: -1.2 Total Z-Score: 0.0 T- and Z-scores: Findings are consistent with osteopenia. Lumbar Spine: Total T-Score: 0.4 Total Z-Score: 2.1 T- and Z-scores: Within normal limits. IMPRESSION: No evidence of osteoporosis.
--- NOTE | 2023-02-10 08:15 | DI.MAMMO_ITS ---
Exam(s) MAMMO SCREENING EXAM: MAMMO SCREENING CLINICAL HISTORY: screening, Z12.39 TECHNIQUE: Bilateral full field digital CC and MLO mammographic images were obtained with 3D tomosyn thesis and utilizing computer aided detection (CAD). COMPARISON: Available for comparison. FINDINGS: Masses/Architectural Distortion: None seen. Microcalcifications: No suspicious pleomorphic-type are seen. Benign stable type calcifications are s een in both breasts. Skin Thickening/Nipple Retraction: None. IMPRESSION: 1. No significant interval change with no specific features of malignancy noted. 2. Unless there is more urgent need, screening mammography is recommended, as per [employer] guidelines. BI-RADS Category 1 - Negative Breast Density - Category A - Almost entirely fatty Breast density category C or D implies that the patient has dense breast tissue. Dense breast tissue is very common and is not abnormal but dense breast tissue can make it harder to find cancer on a ma mmogram. Also, dense breast tissue may increase their breast cancer risk. This information about the result of the mammogram report was provided to the patient to raise their awareness. Use this report when you speak with the patient about their risks for breast cancer, which includes their family hist ory. At that time, you may recommend for more screening tests (Ultrasound or MRI) as they might be us eful based on their risk. A negative radiographic report should not delay biopsy if a dominant or clinically suspicious mass is present. Up to ten percent of cancers are not identified on mammography. A negative report may reinforce clinical impression. Adenosis and dense breasts may obscure an underlying neoplasm. False positive reports average 6 to 10%. Patient will receive a letter notifying them of these results.
== END ==
PROVIDERS: PCP Family Medicine; Visit Provider Family Medicine
DX: Z12.31 Encounter for screening mammogram for malignant neoplasm of breast (principal); Z78.0 Asymptomatic menopausal state; Z13.820 Encounter for screening for osteoporosis
CPT/HCPCS: 77063; 77067; 77080

== ENCOUNTER 2023-08-19 01:11 | Outpatient (CLI) | payer BC, SELFPAY ==
[2023-08-19 12:05] LABS: Abs Immature Grans 0.03 10^3/uL (0.0-0.06); Absolute Basophil Count 0.07 10^3/uL (0.0-0.2); Absolute Eosinophil Count 0.11 10^3/uL (0.0-0.7); Absolute Lymphocyte Count 1.77 10^3/uL (1.2-3.4); Absolute Monocyte Count 0.62 10^3/uL (0.1-0.8); Absolute Neutrophil Count 3.79 10^3/uL (1.2-6.7); Basophils % 1.1; Eosinophils % 1.7; HCT 37.6 % (36.0-46.0); HGB 12.5 g/dL (11.2-15.7); Immature Grans % 0.5; Lymphocytes % 27.7; MCH 29.3 pg (27.0-33.0); MCHC 33.2 % (32.0-36.0); MCV 88 fL (80-95); MPV 12.2 fL (8.0-11.0); Monocytes % 9.7; Neutrophils % 59.3; Platelet Count 249 10^3/uL (130-400); RBC 4.26 10^6/uL (3.93-5.22); RDW 14.1 % (11.7-14.6); RDW-SD 45.2 fL; WBC 6.39 10^3/uL (4.4-10.8)
[2023-08-19 12:17] LABS: ALT 27 U/L (14-59); AST 17 U/L (15-37); Albumin 3.8 g/dL (3.4-5.0); Alkaline Phosphatase 64 U/L (46-116); Anion Gap 11.2 mmol/L (3-11); BUN 18 mg/dL (7-18); Bilirubin, Total 0.3 mg/dL (0.2-1.0); CO2 27.8 mmol/L (21.0-32.0); CREATININE 0.8 mg/dL (0.55-1.02); Calcium 9.2 mg/dL (8.5-10.1); Chloride 104 mmol/L (98-107); Estimated GFR 82.23 (mL/min/1.73m2); Glucose 122 mg/dL (74-106); Potassium 3.6 mmol/L (3.5-5.1); Sodium 143 mmol/L (136-145); Total Protein 7.3 g/dL (6.4-8.2)
== END 2023-08-19 01:12 | disposition home or self-care (01) ==
LOC: LOS 01:13
PROVIDERS: PCP Family Medicine; Visit Provider Nurse Practitioner Family
DX: K52.9 Noninfective gastroenteritis and colitis, unspecified (principal)
CPT/HCPCS: 36415; 80053; 85025

== ENCOUNTER → 2023-09-02 00:47 | Outpatient (CLI) | payer BC, SELFPAY ==
--- NOTE | 2023-09-02 06:30 | DI.RAD_ITS ---
Exam(s) XR CHEST 2V PA LATERAL EXAM: XR CHEST 2V PA LATERAL CLINICAL HISTORY: SOB,R06.02. TECHNIQUE: 2D digital imaging was performed. COMPARISON: No exams were available for comparison FINDINGS: 2 views: Heart size is normal. The mediastinum is not widened. Lungs are clear. No infiltrates nor pleural effusions. IMPRESSION: No acute pulmonary findings. DATA REPOSITORY: RADIATION DOSE DELIVERED:
--- NOTE | 2023-09-02 06:30 | DI.RAD_ITS ---
Exam(s) XR THORACIC SPINE COMPLETE EXAM: XR THORACIC SPINE COMPLETE CLINICAL HISTORY: thoracic pain,M54.6. TECHNIQUE: 2D digital imaging was performed. COMPARISON: No exams were available for comparison FINDINGS: 3 views No evidence of acute fracture or listhesis. There are multilevel anterior osteophytes. No prominent disc space narrowing. No abnormal widening of the paraspinal lines. No scoliosis. No osseous lesi ons. IMPRESSION: No acute osseous findings in the thoracic spinal column. DATA REPOSITORY: RADIATION DOSE DELIVERED:
== END ==
PROVIDERS: PCP Family Medicine; Visit Provider Family Medicine
DX: M54.6 Pain in thoracic spine (principal); R06.02 Shortness of breath
CPT/HCPCS: 71046; 72072

== ENCOUNTER 2024-06-22 11:10 | Observation (INO) | payer BC, SELFPAY ==
[2024-06-22] VITALS (69 sets, daily range): BP systolic 130–202; BP diastolic 47–87; PULSE 46–63; RESP 10–20; TEMP 36.7–37; O2SAT 87–100
--- NOTE | 2024-06-22 12:00 | DI.CT_ITS ---
Exam(s) CT HEAD CERVICAL SPINE WO EXAM: CT HEAD CERVICAL SPINE WO CLINICAL HISTORY: fall, head impact. TECHNIQUE: Imaging Protocol: Axial computed tomography images with coronal and sagittal reformatted images were created and reviewed COMPARISON: No exams were available for comparison FINDINGS: CT Head: Ventricles and Extra axial spaces: Normal in size and morphology for the patient's age. Hemorrhage: None. Cerebral parenchyma: Evidence of an acute territorial infarct. No mass effect. Midline shift: None. Brainstem/Cerebellum: Normal. Calvarium: Normal. Visualized Paranasal sinuses/Mastoids: Clear. Soft Tissues: Unremarkable. CT Cervical Spine: Bones: No acute fracture or subluxation. Age-appropriate degenerative changes are seen in the cervica l spine. Soft Tissues: Unremarkable. Lung Apices: Clear. IMPRESSION: 1. No acute intracranial process. 2. No acute fracture or subluxation in the cervical spine. RADIATION DOSE DELIVERED: 1,367.13mGy.cm Total DLP DATA REPOSITORY: All CT scans at this facility are submitted to the National Radiology Data Registry (NRDR) Dose Index Registry (DIR) with the [employer] (ACR). RADIATION OPTIMIZATION: All CT scans at this facility use at least one of these dose optimization te chniques: automated exposure control; mA and/or kV adjustment per patient size (includes targeted exa ms where dose is matched to clinical indication); or iterative reconstruction.
[2024-06-22] MEDS: HYDROmorphone 2 MG/ML SYR 1 MG IVP (12:32)
[2024-06-22] MEDS: Omnipaque 350 MG/ML 100 ML BTL IJ (12:49)
[2024-06-22] MEDS: Normal Saline - Diluent 50 ML VIAL IJ (12:49)
--- NOTE | 2024-06-22 12:52 | W.ED.GENAD ---
Discharge Plan Discharge Details Chief Complaint: Fall/Non TraumaCriteria Clinical Impression: Closed fracture of T8 vertebra, Fall Primary Care Provider: Molly Ross ED Provider: Emerson Graves Home Meds and New Rx's Prescriptions: No Action vitamin B complex [B Complex-Vitamin B12] tablet 1 tab PO DAILY multivitamin [Daily Multi-Vitamin] Tablet 1 tab PO DAILY losartan 100 mg tablet 100 mg PO DAILY Qty: 90 4RF trazodone 50 mg tablet 50 - 100 mg PO QHS Qty: 180 5RF gabapentin 300 mg capsule 300 mg PO as directed Qty: 270 4RF Rx Instructions: 1 tab pm2 tab am omeprazole 40 mg capsule,delayed release(DR/EC) 40 mg PO DAILY Qty: 90 3RF acetaminophen [Acetaminophen Extra Strength] 500 mg tablet 1,000 mg PO QID PRNQty: 100 citalopram 20 mg tablet 20 mg PO DAILY Qty: 90 4RF potassium chloride 20 mEq tablet extended release 20 meq PO DAILY Qty: 90 5RF hydrochlorothiazide 25 mg tablet 25 mg PO DAILY Qty: 90 4RF ibuprofen 600 mg tablet 600 mg PO BID PRN HPI General Mode of arrival: EMS. Date/Time Provider Initiated Documentation: 06/22/24 11:29. Limitations to Documentation: no limitations. Information obtained by: patient. HPI Narrative: 63-year-old female with history of multiple medical problems, here after slip and fall down 3 stairs with injury to her back. Patient notes she directly impacted her back on multiple steps as she fell. She has pain in her mid to upper back centrally and on the right. Pain is severe and constant. Worse with movement. Patient also notes right elbow pain. She states she struck her right posterior elbow during the fall. She did hit her head. Mother who is here and witnessed the fall and notes she struck her head hard on the stairs. No LOC. Related Data Home Medications ?Medication ?Instructions ?Recorded ?Confirmed acetaminophen 500 mg tablet 1,000 mg PO QID PRN #100 tab-caps 10/26/18 06/22/24 (Acetaminophen Extra Strength) ibuprofen 600 mg tablet 600 mg PO BID PRN 10/26/18 06/22/24 vitamin B complex (B 1 tab PO DAILY 10/26/18 06/22/24 Complex-Vitamin B12 tablet) multivitamin (Daily Multi-Vitamin 1 tab PO DAILY 06/16/20 06/22/24 tablet) omeprazole 40 mg capsule,delayed 40 mg PO DAILY #90 caps 07/22/23 06/22/24 release citalopram 20 mg tablet 20 mg PO DAILY #90 tabs 08/08/23 06/22/24 potassium chloride 20 mEq 20 meq PO DAILY #90 tabs 08/08/23 06/22/24 tablet,extended release gabapentin 300 mg capsule 300 mg PO as directed #270 tab-caps 08/29/23 06/22/24 losartan 100 mg tablet 100 mg PO DAILY #90 tabs 08/29/23 06/22/24 trazodone 50 mg tablet 50 - 100 mg (1 - 2 x 50 mg) PO QHS 08/29/23 06/22/24 #180 tabs hydrochlorothiazide 25 mg tablet 25 mg PO DAILY hypertension #90 10/19/23 06/22/24 tabs Previous Rx's ?Medication ?Instructions ?Recorded omeprazole 40 mg capsule,delayed 40 mg PO DAILY #90 caps 07/22/23 release citalopram 20 mg tablet 20 mg PO DAILY #90 tabs 08/08/23 potassium chloride 20 mEq 20 meq PO DAILY #90 tabs 08/08/23 tablet,extended release gabapentin 300 mg capsule 300 mg PO as directed #270 tab-caps 08/29/23 losartan 100 mg tablet 100 mg PO DAILY #90 tabs 08/29/23 trazodone 50 mg tablet 50 - 100 mg (1 - 2 x 50 mg) PO QHS 08/29/23 #180 tabs hydrochlorothiazide 25 mg tablet 25 mg PO DAILY hypertension #90 10/19/23 tabs Allergies Allergy/AdvReac Type Severity Reaction Status Date / Time adhesive tape Allergy Intermediate severe Verified 06/22/24 11: skin break down. Penicillins Allergy Intermediate unknown Unverified 06/22/24 11:25 happened as child, was told to neve use General Stated Complaint: Fall/Non TraumaCriteria ALEKSANDAR: 3 Review of Systems All systems reviewed & are unremarkable except as noted in HPI and below Exam Const General: cooperative HENMT Head: normocephalic Mouth: moist mucous membranes Eyes Conjunctivae: normal conjunctivae Sclera: normal sclerae Neck Neck: trachea midline and supple Resp Auscultation: clear to auscultation bilaterally, no rales, no rhonchi and no wheezes Cardio Rate: regular rate and not tachycardic Rhythm: regular rhythm GI Palpation: soft, not firm, no guarding, no masses, not rigid and nontender Back/Spine/Pelvis Cervical Spine: collar present Thoracic/Lumbar Spine: thoracic spinal tenderness Skin General skin exam: no rashes or lesions noted Neuro General: patient alert, patient awake, patient oriented x3 and tone normal Extrem Right upper extremity: elbow/forearm Details: tenderness Location: of the olecranon, swelling, ecchymosis (posterior elbow) and distal pulses intact; no deformity Course Vital Signs Vital signs: Vital Signs Temperature 37 C 06/22/24 11:14 Pulse 58 L 06/22/24 11:14 Respiratory Rate 20 06/22/24 11:14 Blood Pressure 199/87 H 06/22/24 11:14 Pulse Oximetry 100 06/22/24 11:14 Temperature 37 C 06/22/24 11:14 Pulse 53 L 06/22/24 12:44 Pulse 54 L 06/22/24 12:44 Respiratory Rate 14 06/22/24 12:44 Blood Pressure 202/65 H 06/22/24 12:44 Blood Pressure Mean 119 06/22/24 12:44 Blood Pressure Position Sitting 06/22/24 11:14 Pulse Oximetry 96 06/22/24 12:44 Oxygen Delivery Method Room Air 06/22/24 11:14 Oxygen Flow Rate 0 06/22/24 11:14 Pain Level 8 06/22/24 12:32 Medical Decision Making 1300 --63-year-old female with multiple medical problems here after mechanical slip and fall down 3 stairs with injury to her back and right elbow. Patient did strike her head during the fall. Patient is uncomfortable. Hypertensive on arrival. Concern for acute life-threatening traumatic injury including potential for intracranial traumatic hemorrhage, pneumothorax, spinal fracture. Plan to obtain CT imaging. Consider also right elbow fracture. Will obtain x-ray. Dilaudid IV for pain. 1423 --CT of the chest abdomen pelvis with spinal reconstruction interpreted by radiology: IMPRESSION: 1. There is an acute fracture through the anterior aspect of the T8 vertebral body. No significant compression is seen at the fracture. The fracture does not involve the posterior wall or the posterior elements. 2. No acute pulmonary process. 3. No acute abdominal or pelvic organ injury. 4. Unremarkable CT scan of the chest. CT head and cervical spine interpreted by radiology: 1. No acute intracranial process. 2. No acute fracture or subluxation in the cervical spine. X-ray of the right elbow interpreted by radiology: Unremarkable radiographs of the right elbow. Suspect elbow contusion. Plan to discuss CT findings with trauma [facility] [place]. 6284 --significant delay in care speaking with transfer center at [facility] [place] and awaiting callback and then follow-up conversation with [facility] transfer center. When I spoke with orthopedic spine at [facility] [place], they are concerned about posterior fusion and potential unstable fracture not apparent on CT. They recommended MRI be performed as soon as possible to assess for fracture extension. They declined to accept the patient in transfer due to capacity. I then spoke with [facility] transfer center and transfer contact center director Dr. Estrada --they are also at capacity and unable to definitively accept the patient but would except the patient for MRI and potentially need to transfer back to [facility]. I contacted in-house radiology team and arranging for in-house MRI tonight. Lab Data Lab results reviewed: Yes I reviewed the patient's lab results. Labs: Laboratory Tests Range/Units 06/22/24 12:38 WBC (4.4-10.8) 10^3/uL 9.14 RBC (3.93-5.22) 10^6/uL 4.63 Hgb (11.2-15.7) g/dL 13.7 Hct (36.0-46.0) % 41.0 MCV (80-95) fL 89 MCH (27.0-33.0) pg 29.6 MCHC (32.0-36.0) % 33.4 RDW (11.7-14.6) % 14.1 Plt Count (130-400) 10^3/uL 233 MPV (8.0-11.0) fL 11.9 H Immature Gran % % 0.9 Neutrophils % % 75.2 Lymphocytes % % 14.9 Monocytes % % 7.5 Eosinophils % % 0.8 Basophils % % 0.7 Nucleated RBC % (0.0-0.3) % 0.0 Absolute Neutrophils (1.2-6.7) 10^3/uL 6.88 H Absolute Lymphocytes (1.2-3.4) 10^3/uL 1.36 Absolute Monocytes (0.1-0.8) 10^3/uL 0.69 Absolute Eosinophils (0.0-0.7) 10^3/uL 0.07 Absolute Basophils (0.0-0.2) 10^3/uL 0.06 Sodium (136-145) mmol/L 143 Potassium (3.5-5.1) mmol/L 3.8 Chloride (98-107) mmol/L 105 Carbon Dioxide (21.0-32.0) mmol/L 29.3 Anion Gap (3-11) mmol/L 8.7 BUN (7-18) mg/dL 22 H Creatinine (0.55-1.02) mg/dL 0.8 Est GFR (CKD-EPI 2020) (mL/min/1.73m2) 81.72 Glucose (74-106) mg/dL 112 H Calcium (8.5-10.1) mg/dL 9.7 Total Bilirubin (0.2-1.0) mg/dL 0.44 AST (15-37) U/L 27 ALT (14-59) U/L 38 Alkaline Phosphatase (46-116) U/L 70 Total Protein (6.4-8.2) g/dL 7.5 Albumin (3.4-5.0) g/dL 4.1 ABO/Rh O Positive Antibody Screen NEGATIVE Quality:SDOH Health Related Social Needs: No Data to Display PFSH All Active Problems (Updated 06/22/24 @ 17:36 by Emerson Graves MD) Fall (Acute) Closed fracture of T8 vertebra (Acute) Thoracic back pain (Acute) GERD (gastroesophageal reflux disease) (Chronic) Chronic diarrhea (Chronic) De Quervain's tenosynovitis, left (Chronic) Steroid injection: 12/12/2023 Stress due to illness of family member (Acute) Family history of breast cancer in first degree relative (Acute) Sister HERS 2 Shingles rash (Acute) Fall (Acute) Thumb pain (Acute) Grief (Chronic) Abscess (Acute) Gall bladder disease (Acute) Fatty liver (Acute) Abnormal chest x-ray (Acute 08/26/16) Grief (Acute) Essential hypertension (Acute) Cardiac risk alfonso - 7.3% Depression (Chronic) Annual physical exam (Acute 01/10/17) Left arm numbness (Acute 07/11/17) Low back pain due to displacement of intervertebral disc (Acute 11/22/12) vacuum disc 02/25 L3-4 disc herniation by MRI 03/27 Lumbar disc disease with radiculopathy (Acute 04/03/15) L3-4 disc herniation Shoulder joint pain (Acute 11/22/12) Medical History COVID-19 (~01/2021) Surgical History BACK SURGERY Family History Mother No problems noted. Father , age 59 Neoplasm KIDNEY Cancer of kidney Sister Breast cancer Brother Heart disease Brother No problems noted. Brother No problems noted. Son No problems noted. Daughter No problems noted. Maternal Grandfather Cancer Paternal Grandfather No problems noted. Maternal Grandmother Asthma Paternal Grandmother No problems noted. 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 Pets and animals: No Sexually active: Yes Do you think of yourself as: straight/heterosexual Current gender identity: female What is your relationship status?: How often do you talk on the phone with friends or family?: three or more times per week How often do you get together with friends or relatives?: three or more times per week How often do you attend sabianism or gnosticist services?: decline to answer Do you belong to any clubs or organized social groups?: no Panel score (0-1 are the most socially isolated patients): 1 What type of physical activity do you participate in: none Sarah/Faith: No preference Special sarah needs: No Seatbelt use: always Helmet use: Yes Helmet use: always Drive intox or ride w/intox courtesy bus driver: No Do you feel safe at home: Yes Do you feel safe in your relationship?: Yes Victim of physical abuse: No Victim of emotional abuse: No Victim of sexual abuse: No Would you like helpful sources: No
--- NOTE | 2024-06-22 12:53 | DI.CT_ITS ---
Exam(s) CT CHEST/ABD/PEL W CT THORACIC LUMBAR SPINE REC EXAM: CT CHEST/ABD/PEL W CLINICAL HISTORY: fall down stairs, rt upper back pain TECHNIQUE: Imaging Protocol: Axial computed tomography images with coronal and sagittal reformatted images were created and reviewed. Lung Computer Aided Detection (CAD) was utilized. CONTRAST MATERIAL: Intravenous: Omnipaque 350 contrast volume:100 mL Oral: No COMPARISON: CT CT CHEST LUNG CANCER SCREEN from 12/30/2022 FINDINGS: CHEST: Tracheobronchial tree: Patent where visualized. No evidence of bronchiectasis. Pulmonary parenchyma: No consolidation or dominant measurable mass. No architectural distortion. Ther e is atelectasis in the dependent portions of the lungs. Visualized thyroid gland: Unremarkable. Mediastinum and Precious: No dominant adenopathy or fluid collection. The esophagus is unremarkable. The re is a small hiatal hernia. Pleura: No effusion or pneumothorax. Heart: The heart is not dilated. No coronary artery calcifications are seen. No pericardial effusion. Pulmonary arteries: Due to the timing of the bolus, there is suboptimal opacification of the peripher al pulmonary arteries. No large central pulmonary embolism is present. Aorta: Thoracic aorta non-dilated. Atherosclerotic calcification is present. Lymph nodes: Within normal limits. Soft tissues: Unremarkable. Bones:Within normal limits for the patient's age. No displaced rib fractures are present. CT recons of the thoracic spine. Age-appropriate degenerative changes are seen in the thoracic spine . There is a new lucency seen through the anterior aspect of the T8 vertebral body consistent with an acute fracture. There is no extension into the posterior wall or posterior elements of the vertebra. CT recons of the lumbar spine: Age-appropriate degenerative changes are seen in the lumbar spine. The re is unilateral left spondylolysis at L5 without evidence of spondylolisthesis. No acute fracture or subluxation is present. ABDOMEN: Liver: Normal density. No measurable mass. Portal, Superior Mesenteric, and Splenic Veins: Unremarkable. Gallbladder and Biliary Tract: No radiodense calculus or dilation. Pancreas: Normal density, no abnormal calcifications or inflammatory process. Spleen: Normal. Adrenals: No masses seen. Kidneys: Normal size, contour and axis. No radiodense stones or obstructive uropathy. No masses seen. Abdominal Aorta: Abdominal portion non-dilated. Atherosclerotic calcification is present. Bowel: There is diverticulosis of the colon without evidence of acute diverticulitis. Appendix is unr emarkable. Peritoneal Cavity: No ascites, collection or mesenteric inflammatory response. No free air. Lymph Nodes: Within normal limits. Bones: Within normal limits for the patient's age. No acute fractures or subluxations. Soft Tissues: There is a small fat containing umbilical hernia. PELVIS: Bladder: Symmetric distention, no gross wall thickening. Reproductive Organs: There is a fibroid uterus. Lymph Nodes: Within normal limits. Bones: Within normal limits. No acute fractures or subluxations. IMPRESSION: 1. There is an acute fracture through the anterior aspect of the T8 vertebral body. No significant co mpression is seen at the fracture. The fracture does not involve the posterior wall or the posterior elements. 2. No acute pulmonary process. 3. No acute abdominal or pelvic organ injury. 4. Unremarkable CT scan of the chest. RADIATION DOSE DELIVERED: 1,152.23mGy.cm Total DLP DATA REPOSITORY: All CT scans at this facility are submitted to the National Radiology Data Registry (NRDR) Dose Index Registry (DIR) with the [employer] (ACR). RADIATION OPTIMIZATION: All CT scans at this facility use at least one of these dose optimization te chniques: automated exposure control; mA and/or kV adjustment per patient size (includes targeted exa ms where dose is matched to clinical indication); or iterative reconstruction.
[2024-06-22 12:55] LABS: Abs Immature Grans 0.08 10^3/uL (0.0-0.06); Absolute Basophil Count 0.06 10^3/uL (0.0-0.2); Absolute Eosinophil Count 0.07 10^3/uL (0.0-0.7); Absolute Lymphocyte Count 1.36 10^3/uL (1.2-3.4); Absolute Monocyte Count 0.69 10^3/uL (0.1-0.8); Absolute Neutrophil Count 6.88 10^3/uL (1.2-6.7); Basophils % 0.7 %; Eosinophils % 0.8 %; HGB 13.7 g/dL (11.2-15.7); Immature Grans % 0.9 %; Lymphocytes % 14.9 %; MCH 29.6 pg (27.0-33.0); MCHC 33.4 % (32.0-36.0); MCV 89 fL (80-95); MPV 11.9 fL (8.0-11.0); Monocytes % 7.5 %; Neutrophils % 75.2 %; Platelet Count 233 10^3/uL (130-400); RBC 4.63 10^6/uL (3.93-5.22); RDW 14.1 % (11.7-14.6); WBC 9.14 10^3/uL (4.4-10.8)
[2024-06-22 13:11] LABS: ALT 38 U/L (14-59); AST 27 U/L (15-37); Albumin 4.1 g/dL (3.4-5.0); Alkaline Phosphatase 70 U/L (46-116); Anion Gap 8.7 mmol/L (3-11); BUN 22 mg/dL (7-18); Bilirubin, Total 0.44 mg/dL (0.2-1.0); CO2 29.3 mmol/L (21.0-32.0); CREATININE 0.8 mg/dL (0.55-1.02); Calcium 9.7 mg/dL (8.5-10.1); Chloride 105 mmol/L (98-107); Estimated GFR 81.72 (mL/min/1.73m2); Glucose 112 mg/dL (74-106); Potassium 3.8 mmol/L (3.5-5.1); Sodium 143 mmol/L (136-145); Total Protein 7.5 g/dL (6.4-8.2)
--- NOTE | 2024-06-22 13:25 | DI.RAD_ITS ---
Exam(s) XR ELBOW RT COMPLETE EXAM: XR ELBOW RT COMPLETE CLINICAL HISTORY: pain, trauma. TECHNIQUE: 2D digital imaging was performed of the left elbow. Three images were obtained. AP, lat eral and oblique views were obtained. COMPARISON: No exams were available for comparison FINDINGS: BONES: No acute fracture is present. No bony destructive lesion is seen. JOINTS: The elbow is normally aligned. No joint effusion is seen. SOFT TISSUE: Normal. IMPRESSION: Unremarkable radiographs of the right elbow. DATA REPOSITORY: RADIATION DOSE DELIVERED:
--- NOTE | 2024-06-22 17:45 | DI.MRI_ITS ---
Exam(s) MR THORACIC SPINE WO EXAM: MR THORACIC SPINE WO CLINICAL HISTORY: fracture t8 .DISH TECHNIQUE: Multiplanar multisequence MRI of the thoracic spine was performed without intravenous con trast. COMPARISON: CT CT CHEST/ABD/PEL W from 06/22/[address] THORACIC LUMBAR SPINE REC from 06/22/2024 FINDINGS: Preceding CT scan reveals anterior DISH findings from T5 through T11, inclusive. MRI findings are as follows: OSSEOUS: There is a stellate fracture confined to the anterior half of T8 vertebral body, not associa garfield with significant height loss of this vertebral body nor wedging, giving the buttressing by the DI SH. Fracture lines do not extend to the posterior half of the vertebral body, and there is no involv ement of the posterior cortex. This is also confirmed on the T1 coronal images. Indeed, there is no obvious bone edema seen in the posterior half of the vertebral body on the fluid sensitive STIR imag es. There is some bone edema evident in the and anterior/inferior aspect of T11 vertebral body, also not associated with height loss. On the sagittal T1 images at this level there is a subtle suggestion of a possible subtle hypo intense nondisplaced fracture line, also in the anterior aspect of this verte bral body. T1 hypointense fracture line, however, is not visible on the coronal images at this level . Incidentally noted is a benign intraosseous hemangioma in the T12 vertebral body. DISC LEVELS: There are no significant disc herniations in the thoracic spinal column. No evidence of abnormal collection in the epidural space. No evidence of significant paraspinal hematoma. THORACIC SPINAL CORD: There is no abnormal signal in the cervical spinal cord and no evidence of foca l cord atrophy nor focal cord swelling. There is no evidence of syringomyelia nor significant spinal cord dysraphism. There is no evidence of mass at the conus medullaris. The position of the conus me dullaris is at L1 level. PARASPINAL TISSUES: No significant masses nor fluid collections evident. IMPRESSION: 1. In this patient with DISH the T8 vertebral body fracture is shown to be confined to the anterior h intermediate of the vertebral body. The fracture lines do not extend into the posterior aspect of the vertebr al body. The posterior cortex appears unremarkable, as do the pedicles. Indeed, there is minimal if any significant bone edema seen in the posterior half of the T8 vertebral body on the fluid sensitiv e STIR images. There are also no abnormal findings within the spinal canal at this level. 2. At the T11 level there is some signal abnormality evident within the anterior half of the vertebra l body not associated with height loss nor obvious demonstrable T1 hypointense fracture lines in mult iple planes.. Also no abnormality at the level the posterior cortex of this vertebral body. 3. No evidence of disc herniation, central spinal canal stenosis, foraminal stenosis epidural hematom a, nor significant paraspinal hematoma. Report called by myself to ER physician 06/22/2024 at 7:50 p.m. DATA REPOSITORY:
--- NOTE | 2024-06-22 18:01 | ED.PROG_ITS ---
Date of service: 06/22/24 Time of Service: 20:11 Medical Decision Making You are seen from outgoing provider. Patient is a 63-year-old female that had a fall today resulting in a T8 vertebral body fracture. The concern was the stability of the fracture and of time of signout, MRI was pending. The MRI has been obtained and does not demonstrate a full-thickness fracture of that vertebral body. The patient c-collar was removed. Given her body habitus, fracture and level of pain, the patient would benefit from hospitalization for physical therapy evaluation management as well as pain control. Patient has significant pain with any movement and feel that she is an additional fall risk at home and her only source of assistance is her very elderly and frail mother. This plan for hospitalization was discussed with the hospitalist by the off going physician. Patient affirms her decision to be admitted to the hospital for further management. Quality:SDOH Health Related Social Needs: No Data to Display Discharge Plan Disposition Patient Disposition: Admit to [facility] Condition: Stable Discharge Details Clinical Impression: Closed fracture of T8 vertebra, Fall Primary Care Provider: Molly Ross ED Provider: Kathleen Shrestha Home Meds and New Rx's Prescriptions: No Action vitamin B complex [B Complex-Vitamin B12] tablet 1 tab PO DAILY multivitamin [Daily Multi-Vitamin] Tablet 1 tab PO DAILY losartan 100 mg tablet 100 mg PO DAILY Qty: 90 4RF trazodone 50 mg tablet 50 - 100 mg PO QHS Qty: 180 5RF gabapentin 300 mg capsule 300 mg PO as directed Qty: 270 4RF Rx Instructions: 1 tab pm2 tab am omeprazole 40 mg capsule,delayed release(DR/EC) 40 mg PO DAILY Qty: 90 3RF acetaminophen [Acetaminophen Extra Strength] 500 mg tablet 1,000 mg PO QID PRNQty: 100 citalopram 20 mg tablet 20 mg PO DAILY Qty: 90 4RF potassium chloride 20 mEq tablet extended release 20 meq PO DAILY Qty: 90 5RF hydrochlorothiazide 25 mg tablet 25 mg PO DAILY Qty: 90 4RF ibuprofen 600 mg tablet 600 mg PO BID PRN
[2024-06-22] MEDS: LORazepam 0.5 MG TAB PO ×2 (18:19→22:25)
[2024-06-22] MEDS: Acetaminophen 500 MG TAB 1000 MG PO (18:26)
[2024-06-22] MEDS: MORPHine IR 15 MG TAB PO (20:12)
--- NOTE | 2024-06-22 21:27 | W.PC.ACHO ---
Registration Status: Primary Language: Preferred Language: ED Information & Data Chief Complaint Fall/Non TraumaCriteria 06/22/24 12:53 Triage Note Pt arrives to ED s/p fall 06/22/24 11:14 down approx. 3 stairs. Pt states she hit her RT buttock, c/o RT shoulder/ scapula pain. Pt also c/o RT elbow pain. Pt TTP - lower back. Pt also c/o c-spine tenderness w/ neck movement; c-collar applied in triage. No meds given by EMS [facility] Medical / Surgical History (Last Reviewed 03/27/24 @ 09:21 by DIVINE Woo) COVID-19 (~01/2021) (Last Reviewed 03/27/24 @ 09:21 by DIVINE Woo) BACK SURGERY Most Recent Vital Signs Temperature 37 C 06/22/24 11:14 Pulse 53 L 06/22/24 20:02 Pulse 49 L 06/22/24 16:16 Respiratory Rate 14 06/22/24 16:16 Blood Pressure 160/59 H 06/22/24 20:02 Blood Pressure Mean 87 06/22/24 20:02 Blood Pressure Position Sitting 06/22/24 11:14 Pulse Oximetry 96 06/22/24 20:02 Oxygen Delivery Method Nasal Cannula 06/22/24 13:27 Oxygen Flow Rate 2 06/22/24 13:27 Pain Level 5 06/22/24 18:26 Comment Pt resting. also given dilaudid. Placed on O2 06/22/24 13:30 Allergies adhesive tape Allergy (Intermediate, Verified 06/22/24 21:20) severe skin break down. Penicillins Allergy (Intermediate, Verified 06/22/24 21:20) unknown happened as child, was told to neve use Precautions Isolation Standard precaution 06/22/24 11:33 Active Medications Generic Name Dose Route Start Last Admin Trade Name Freq PRN Reason Stop Dose Admin Iohexol 100 ml 06/22/24 13:00 06/22/24 12:49 Omnipaque 350 Mg/Ml 100 Ml Btl IJ 07/22/24 23:59 100 ml DIRECTED PATRICIO Administration Lorazepam 0.5 mg 06/22/24 18:15 06/22/24 18:19 Lorazepam 0.5 Mg Tab PO 0.5 mg HS PATRICIO Administration Sodium Chloride 50 ml 06/22/24 13:00 06/22/24 12:49 Normal Saline - Diluent 50 Ml Vial IJ 50 ml .FOR DI USE PATRICIO Administration IV IV Catheter Type [Left Saline Lock Antecubital] IV Catheter Gauge [Left 20 Antecubital] Diet Orders Category Date Time Status Regular/Normal [DIET] Nutrition 06/23/24 Breakfast Ordered Diagnostics 06/22/24 Range/Units 12:38 WBC 9.14 (4.4-10.8) 10^3/uL RBC 4.63 (3.93-5.22) 10^6/uL Hgb 13.7 (11.2-15.7) g/dL Hct 41.0 (36.0-46.0) % MCV 89 (80-95) fL MCH 29.6 (27.0-33.0) pg MCHC 33.4 (32.0-36.0) % RDW 14.1 (11.7-14.6) % Plt Count 233 (130-400) 10^3/uL MPV 11.9 H (8.0-11.0) fL Immature Gran % 0.9 % Neutrophils % 75.2 % Lymphocytes % 14.9 % Monocytes % 7.5 % Eosinophils % 0.8 % Basophils % 0.7 % Nucleated RBC % 0.0 (0.0-0.3) % Absolute Neutrophils 6.88 H (1.2-6.7) 10^3/uL Absolute Lymphocytes 1.36 (1.2-3.4) 10^3/uL Absolute Monocytes 0.69 (0.1-0.8) 10^3/uL Absolute Eosinophils 0.07 (0.0-0.7) 10^3/uL Absolute Basophils 0.06 (0.0-0.2) 10^3/uL Sodium 143 (136-145) mmol/L Potassium 3.8 (3.5-5.1) mmol/L Chloride 105 (98-107) mmol/L Carbon Dioxide 29.3 (21.0-32.0) mmol/L Anion Gap 8.7 (3-11) mmol/L BUN 22 H (7-18) mg/dL Creatinine 0.8 (0.55-1.02) mg/dL Est GFR (CKD-EPI 2020) 81.72 (mL/min/1.73m2) Glucose 112 H (74-106) mg/dL Calcium 9.7 (8.5-10.1) mg/dL Total Bilirubin 0.44 (0.2-1.0) mg/dL AST 27 (15-37) U/L ALT 38 (14-59) U/L Alkaline Phosphatase 70 (46-116) U/L Total Protein 7.5 (6.4-8.2) g/dL Albumin 4.1 (3.4-5.0) g/dL ABO/Rh O Positive Antibody Screen NEGATIVE Intake and Output - 24 Hour Total 06/22/24 11:02 thru 06/22/24 12:48 Intake Total 60 Balance 60 Weight 95.254 kg Intake: IV 60 Falls Risk Assessment History of Falls Admit Due to Fall 06/22/24 11:33 Contributing Factors No Factors 06/22/24 11:33 Ambulatory Aids Independent 06/22/24 11:33 Tubes/Lines W/no contributing factors 06/22/24 11:33 Gait Evaluation W/no contributing factors 06/22/24 11:33 Cognition No cognitive impairment 06/22/24 11:33 Fall Total Score 45 06/22/24 11:33 Level of Risk Moderate Risk 06/22/24 11:33 v v v v v v v v v Sending and/or Receiving Nurses: Please use comment section below to note any information pertinent to the patient hand-off not included above. Information / Comments:Pt admit to ED by joe this am per fall outside store down 3 steps. T8 fx, pain to left scapula and head. A&O x 4. Admit for obs to med/surg. Follow up w/ PT and OT tomorrow. Pain control this evening. No numb or tingling, ruled out cervical fx. no c-collar att. Ambulate w/ assistance and walker, pt is fall risk. On 2 L O2 in ED for desat from morph. Taken off O2 prior to med/surg admit. Report received from:Jw VALIENTE, ED
[2024-06-22] MEDS: Gabapentin 300 MG CAP PO (22:25)
[2024-06-22] MEDS: Normal Saline Flush 10 ML SYR IVP (22:26)
--- NOTE | 2024-06-22 22:31 | W.PM.HP.N ---
Date of service: 06/22/24 Time of Service: 21:10 Assessment and Plan Assessment and plan (1) Closed fracture of T8 vertebra: Status: Acute Assessment and plan: Traumatic fracture from slip/fall. Intractable pain, will admit for pain management and IV hydromophone helping, will add ketoralac prn and an oral opioid option Mobilize with PT. (2) Lumbar disc disease with radiculopathy: Status: Acute Assessment and plan: Has some chronic pain a/w disc issue, which is what I assume the gabapentin is for. This is unrelated to her current presentation. (3) GERD (gastroesophageal reflux disease): Status: Chronic Assessment and plan: Continue outpatient therapy with citalopram. (4) Depression: Status: Chronic Assessment and plan: continue outpaitent medication (5) Essential hypertension: Status: Acute Assessment and plan: continue outpatient therapy with losartan and HCTZ (6) DVT prophylaxis: Status: Acute Assessment and plan: enoxaparin History of Present Illness History of Present Illness Chief Complaint: back pain Narrative: 63 yo F with history of hypertension, depression, and lumbar disc disease presenting after she slipped walking down icy stairs at a store in [place]. She missed 3 steps and slammed down on her mid back. She immediately had pain which made it difficult to move. Pain is sharp, no radiation, severe. She never had focal weakness or numbness in legs, groin, or elsehwere. No change in bowell or bladder function. Pain medication has helped, but she still can't get up around the room on her own. she also has some right elbow pain but can move it normally. Her left knee hurts but this is chornic. No LOC but she did hit the back of her head as well. Review of Systems All systems reviewed & are unremarkable except as noted in HPI and below PFSH All Active Problems (Updated 06/22/24 @ 22:36 by Surya Hutton) DVT prophylaxis (Acute) Fall (Acute) Closed fracture of T8 vertebra (Acute) Thoracic back pain (Acute) GERD (gastroesophageal reflux disease) (Chronic) Chronic diarrhea (Chronic) De Quervain's tenosynovitis, left (Chronic) Steroid injection: 12/12/2023 Stress due to illness of family member (Acute) Family history of breast cancer in first degree relative (Acute) Sister HERS 2 Shingles rash (Acute) Fall (Acute) Thumb pain (Acute) Grief (Chronic) Abscess (Acute) Gall bladder disease (Acute) Fatty liver (Acute) Abnormal chest x-ray (Acute 08/26/16) Grief (Acute) Essential hypertension (Acute) Cardiac risk alfonso - 7.3% Depression (Chronic) Annual physical exam (Acute 01/10/17) Left arm numbness (Acute 07/11/17) Low back pain due to displacement of intervertebral disc (Acute 11/22/12) vacuum disc 02/25 L3-4 disc herniation by MRI 03/27 Lumbar disc disease with radiculopathy (Acute 04/03/15) L3-4 disc herniation Shoulder joint pain (Acute 11/22/12) Medical History (Updated 06/22/24 @ 22:36 by Surya Hutton) COVID-19 (~01/2021) Surgical History (Updated 06/22/24 @ 22:33 by Surya Hutton) S/P tubal ligation BACK SURGERY Family History Mother No problems noted. Father , age 59 Neoplasm KIDNEY Cancer of kidney Sister Breast cancer Brother Heart disease Brother No problems noted. Brother No problems noted. Son No problems noted. Daughter No problems noted. Maternal Grandfather Cancer Paternal Grandfather No problems noted. Maternal Grandmother Asthma Paternal Grandmother No problems noted. 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 Pets and animals: No Sexually active: Yes Do you think of yourself as: straight/heterosexual Current gender identity: female What is your relationship status?: How often do you talk on the phone with friends or family?: three or more times per week How often do you get together with friends or relatives?: three or more times per week How often do you attend latter day or holiness services?: decline to answer Do you belong to any clubs or organized social groups?: no Panel score (0-1 are the most socially isolated patients): 1 What type of physical activity do you participate in: none Sarah/Cheondoism: No preference Special sarah needs: No Seatbelt use: always Helmet use: Yes Helmet use: always Drive intox or ride w/intox driver/sales workers: No Do you feel safe at home: Yes Do you feel safe in your relationship?: Yes Victim of physical abuse: No Victim of emotional abuse: No Victim of sexual abuse: No Would you like helpful sources: No Additional Social history: Lives in [place], mother also in home, 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 Meds Allergies and Home Medications Allergies Allergy/AdvReac Type Severity Reaction Status Date / Time adhesive tape Allergy Intermediate severe Verified 06/22/24 21:20 skin break down. Penicillins Allergy Intermediate unknown Verified 06/22/24 21:20 happened as child, was told to neve use Home Medications ?Medication ?Instructions ?Recorded ?Confirmed ?Type acetaminophen 500 mg tablet 1,000 mg PO QID PRN #100 tab-caps 10/26/18 06/22/24 History (Acetaminophen Extra Strength) ibuprofen 600 mg tablet 600 mg PO BID PRN 10/26/18 06/22/24 History vitamin B complex (B 1 tab PO DAILY 10/26/18 06/22/24 History Complex-Vitamin B12 tablet) multivitamin (Daily Multi-Vitamin 1 tab PO DAILY 06/16/20 06/22/24 History tablet) omeprazole 40 mg capsule,delayed 40 mg PO DAILY #90 caps 07/22/23 06/22/24 Rx release citalopram 20 mg tablet 20 mg PO DAILY #90 tabs 08/08/23 06/22/24 Rx potassium chloride 20 mEq 20 meq PO DAILY #90 tabs 08/08/23 06/22/24 Rx tablet,extended release gabapentin 300 mg capsule 300 mg PO as directed #270 tab-caps 08/29/23 06/22/24 Rx losartan 100 mg tablet 100 mg PO DAILY #90 tabs 08/29/23 06/22/24 Rx trazodone 50 mg tablet 50 - 100 mg (1 - 2 x 50 mg) PO QHS 08/29/23 06/22/24 Rx #180 tabs hydrochlorothiazide 25 mg tablet 25 mg PO DAILY hypertension #90 10/19/23 06/22/24 Rx tabs Exam Narrative Exam Narrative: GEN: Alert and oriented x 4, pleasant and cooperative, gives linear history. Lying in bed, uncomfortable with movement of torso with exam HEENT: Head atraumatic except bruise left forehead. Conjunctiva clear, no icterus. PEERL, EOMI. no rhinorrhea. MMM, OP benign. Neck is supple with no masses or lymphadenopathy, trachea midline LUNGS: CTAB with normal effort CV: RRR with no murmurs, gallops, or rubs. ABD: active bowel sounds, soft, nontender and nondistended. No masses. EXT: no cyanosis, clubbing, or edema MSK: No joint redness or swelling, tender in thoracic spine NEURO: CN 2-12 grossly intact. Normal strength and gross sensation 4 extremities. Normal speech and coordination. No tremor SKIN: No rashes or open wounds. PSYCH: normal mood and affect Results Imaging Imaging Studies: MRI thoracic spine: In this patient with DISH the T8 vertebral body fracture is shown to be confined to the anterior half of the vertebral body. The fracture lines do not extend into the posterior aspect of the vertebral body. The posterior cortex appears unremarkable, as do the pedicles. Indeed, there is minimal if any significant bone edema seen in the posterior half of the T8 vertebral body on the fluid sensitive STIR images. There are also no abnormal findings within the spinal canal at this level. 2. At the T11 level there is some signal abnormality evident within the anterior half of the vertebral body not associated with height loss nor obvious demonstrable T1 hypointense fracture lines in multiple planes.. Also no abnormality at the level the posterior cortex of this vertebral body. 3. No evidence of disc herniation, central spinal canal stenosis, foraminal stenosis epidural hematoma, nor significant paraspinal hematoma. CT C/A/P: 1. There is an acute fracture through the anterior aspect of the T8 vertebral body. No significant compression is seen at the fracture. The fracture does not involve the posterior wall or the posterior elements. 2. No acute pulmonary process. 3. No acute abdominal or pelvic organ injury. 4. Unremarkable CT scan of the chest. CT Head/spine: 1. No acute intracranial process. 2. No acute fracture or subluxation in the cervical spine. XR elbow: no fx Labs 06/22/24 12:38 06/22/24 12:38 Labs: Laboratory Results - last 24 hr 06/22/24 12:38 WBC 9.14 RBC 4.63 Hgb 13.7 Hct 41.0 MCV 89 MCH 29.6 MCHC 33.4 RDW 14.1 Plt Count 233 MPV 11.9 H Immature Gran % 0.9 Neutrophils % 75.2 Lymphocytes % 14.9 Monocytes % 7.5 Eosinophils % 0.8 Basophils % 0.7 Nucleated RBC % 0.0 Absolute Neutrophils 6.88 H Absolute Lymphocytes 1.36 Absolute Monocytes 0.69 Absolute Eosinophils 0.07 Absolute Basophils 0.06 Sodium 143 Potassium 3.8 Chloride 105 Carbon Dioxide 29.3 Anion Gap 8.7 BUN 22 H Creatinine 0.8 Est GFR (CKD-EPI 2020) 81.72 Glucose 112 H Calcium 9.7 Total Bilirubin 0.44 AST 27 ALT 38 Alkaline Phosphatase 70 Total Protein 7.5 Albumin 4.1 ABO/Rh O Positive Antibody Screen NEGATIVE Last Vital Signs Temp 36.7 C 06/22/24 21:44 Pulse 60 06/22/24 21:44 Resp 16 06/22/24 21:44 BP 184/81 H 06/22/24 21:44 Pulse Ox 97 06/22/24 21:44 PAWSS Have you Been Recently Intoxicated or Drunk Within the Last 30 days?: Unable to Obtain Have you Ever Experienced Previous Episodes of Alcohol Withdrawal?: Unable to Obtain Have you ever Experienced Withdrawal Seizures?: Unable to Obtain Have you ever Experienced Delirium Tremens(DT)s?: Unable to Obtain Have you ever undergone Alcohol Rehabilitation Treatment (i.e, inpt ot outpatient treatment programs)?: Unable to Obtain Have you ever Experienced Blackouts?: Unable to Obtain Have you ever Combined Alcohol with other Downers within the last 90 days?: Unable to Obtain Have you ever Combined Alcohol with any other Substance of Abuse during the last 90 days?: Unable to Obtain Positive Blood Alcohol level on Presentation? [PCS.BAL]: Unable to Obtain Evidence of Increased Autonomic Activity (i.e. HR>120, tremor, sweating, agitation, nausea)?: Unable to Obtain Time Spent Time spent with Patient: 55-74 minutes Time was spent: preparing to see the patient(eg.review tests), obtaining and/or reviewing separately otained hiistory, ordering medications,tests, procedures, referring, communicating with other health lawn care worker, indepentently interpreting results, counseling the patient and care coordination
[2024-06-23] VITALS (8 sets, daily range): BP systolic 126–184; BP diastolic 56–81; PULSE 54–61; RESP 15–16; TEMP 36.2–36.7; O2SAT 90–97
[2024-06-23] MEDS: traZODone 50 MG TAB 100 MG PO ×2 (00:18→20:25)
[2024-06-23] MEDS: Acetaminophen 325 MG TAB 650 MG PO ×6 (00:19→20:24)
[2024-06-23] MEDS: Ketorolac 15 MG/ML VIAL IVP (00:35)
[2024-06-23] MEDS: HYDROmorphone 2 MG TAB PO (04:51)
[2024-06-23] MEDS: Normal Saline Flush 10 ML SYR IVP ×3 (04:52→20:24)
[2024-06-23] MEDS: Gabapentin 300 MG CAP 600 MG PO (09:35)
[2024-06-23] MEDS: hydroCHLOROthiazide 25 MG TAB PO (09:35)
[2024-06-23] MEDS: Vitamins B Comp w/C TAB 1 TAB PO (09:35)
[2024-06-23] MEDS: Omeprazole 20 MG CAPCR 40 MG PO (09:35)
[2024-06-23] MEDS: Potassium Chloride 20 MEQ TABCR PO (09:36)
[2024-06-23] MEDS: Citalopram 20 MG TAB PO (09:36)
[2024-06-23] MEDS: Losartan 50 MG TAB 100 MG PO (09:36)
[2024-06-23] MEDS: Multivitamin TAB 1 TAB PO (09:37)
--- NOTE | 2024-06-23 09:41 | PDOC.CMIN ---
Date of service: 06/23/24 Time of Service: 09:41 Care Management Initial Assmt Initial Assessment Reason for Hospitalization: T8 vertebral fracture Functional Status/Living Situation Patient Presentation: Luci was sleeping when CM attempted to meet with her. She's been in pain and appears comfortable therefor CM elected not to wake her up. Information obtained is per chart review and from her care team during interdisciplinary rounds. CM will continue to follow. Town of Residence: [place] Resides with: Parent (Mother Laila) Significant Other/Family: Local Natural Supports: Daughter Rosamaria, Son Angelo. Luci is the primary caregiver for her mother Laila. Employment Status: Employed Instrumental Activities of Daily Living (ADLs): Independent Medications Medication Management: No Issues/Barriers identified Advance Directives Advance Directives: Do you have an Advance Directive: Y 06/22/24 20:47 AD On File at [facility]: Y 06/22/24 20:47 Date Asked 06/22/24 06/22/24 11:19 AD Date Reviewed 06/22/24 06/22/24 20:47 COLST On File at [facility] COLST Date Scanned Code Status Resuscitation Status Full Code Insurance Coverage/Financial Issues Insurance: BC/BC out of State Financial Issues: None identified Care Team Visit Care Team Role Provider Type Molly Ross MD, [place] Primary Care Provider [facility] InPatient Kamlesh Shelton Other Providers OTHER Kathleen Shrestha MD Emergency Provider [facility] STAFF PHYSICIAN Surya Hutton Admit Provider [facility] STAFF PHYSICIAN Attending Provider Discharge Potential Discharge Needs: PCP F/U Appt Anticipated Barriers to Discharge: None Identified Patient/Family Education Needs: Review discharge instructions, discuss Ask Me Three Transportation: Private vehicle Plan: Anticipate Luci will discharge home via private vehicle with her Daughter Rosamaria when she is medically ready and her pain is better controlled. Pt will need to follow up with community providers, and discharge plan of care once established. Outpatient PT is recommended. No HH services are anticipated at this time. Social Determinants of Health Screening Social Determinants of Health last assessed: 06/23/24 Will the Patient Participate in the Screening?: Yes Do you worry about having a steady place to live?: no Problems where you live: no known problems In the past 12 months, have you had to go without electric, gas, oil or water in your home?: no Have you or anyone in your house had to go without enough food to eat?: no Has lack of transportation kept you from medical appointments or from doing things needed for daily living?: no Has anyone in your life made you feel unsafe or unsupported?: no How hard is it for you to pay for the very basics like food, housing, medical care, and heating? Would you say it is:: Not hard at all Do you want help finding or keeping work or a job?: I do not need or want help If for any reason you need help with day-to-day activities such as bathing, preparing meals, shopping, managing finances, etc., do you get the help you need?: I don?t need any help How often do you feel lonely or isolated from those around you?: Never Do you speak a language other than Ukrainian at home?: No Does the patient want assistance with any of the above?: No PFSH All Active Problems (Updated 06/22/24 @ 22:36 by Surya Hutton) DVT prophylaxis (Acute) Fall (Acute) Closed fracture of T8 vertebra (Acute) Thoracic back pain (Acute) GERD (gastroesophageal reflux disease) (Chronic) Chronic diarrhea (Chronic) De Quervain's tenosynovitis, left (Chronic) Steroid injection: 12/12/2023 Stress due to illness of family member (Acute) Family history of breast cancer in first degree relative (Acute) Sister HERS 2 Shingles rash (Acute) Fall (Acute) Thumb pain (Acute) Grief (Chronic) Abscess (Acute) Gall bladder disease (Acute) Fatty liver (Acute) Abnormal chest x-ray (Acute 08/26/16) Grief (Acute) Essential hypertension (Acute) Cardiac risk alfonso - 7.3% Depression (Chronic) Annual physical exam (Acute 01/10/17) Left arm numbness (Acute 07/11/17) Low back pain due to displacement of intervertebral disc (Acute 11/22/12) vacuum disc 02/25 L3-4 disc herniation by MRI 03/27 Lumbar disc disease with radiculopathy (Acute 04/03/15) L3-4 disc herniation Shoulder joint pain (Acute 11/22/12) Medical History (Updated 06/22/24 @ 22:36 by Surya Hutton) COVID-19 (~01/2021) Surgical History (Updated 06/22/24 @ 22:33 by Surya Hutton) S/P tubal ligation BACK SURGERY Family History Mother No problems noted. Father , age 59 Neoplasm KIDNEY Cancer of kidney Sister Breast cancer Brother Heart disease Brother No problems noted. Brother No problems noted. Son No problems noted. Daughter No problems noted. Maternal Grandfather Cancer Paternal Grandfather No problems noted. Maternal Grandmother Asthma Paternal Grandmother No problems noted. 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 Pets and animals: No Sexually active: Yes Do you think of yourself as: straight/heterosexual Current gender identity: female What is your relationship status?: How often do you talk on the phone with friends or family?: three or more times per week How often do you get together with friends or relatives?: three or more times per week How often do you attend jehovah's witness or tenriism services?: decline to answer Do you belong to any clubs or organized social groups?: no Panel score (0-1 are the most socially isolated patients): 1 What type of physical activity do you participate in: none Sarah/Yazidi: No preference Special sarah needs: No Seatbelt use: always Helmet use: Yes Helmet use: always Drive intox or ride w/intox test driver: No Do you feel safe at home: Yes Do you feel safe in your relationship?: Yes Victim of physical abuse: No Victim of emotional abuse: No Victim of sexual abuse: No Would you like helpful sources: No Additional Social history: Lives in [place], mother also in home, 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
--- NOTE | 2024-06-23 09:42 | PGE_ITS ---
Date of Service Date of service: 06/23/24 Time of Service: 09:42 Assessment and Plan Assessment and plan (1) Closed fracture of T8 vertebra: Status: Acute Assessment and plan: Traumatic fracture from slip/fall. Intractable pain, will admit for pain management and IV hydromophone helping, will add ketoralac prn and an oral opioid option Mobilize with PT. 06.23.24 Will add bowel regimen 2/2 opioid use (2) Lumbar disc disease with radiculopathy: Status: Acute Assessment and plan: Has some chronic pain a/w disc issue, which is what I assume the gabapentin is for. This is unrelated to her current presentation. (3) GERD (gastroesophageal reflux disease): Status: Chronic Assessment and plan: Continue outpatient therapy with citalopram. (4) Depression: Status: Chronic Assessment and plan: continue outpaitent medication (5) Essential hypertension: Status: Acute Assessment and plan: continue outpatient therapy with losartan and HCTZ (6) DVT prophylaxis: Status: Acute Assessment and plan: enoxaparin Subjective Subjective Interval history since last seen: Pt seen and examined in her room this am. Pt still with pain but states fair/good control. POC d/w pt as well as with bedside nurse during MDR Exam Narrative Exam Narrative: GEN: Alert and oriented x 4, pleasant and cooperative, gives linear history. Lying in bed, uncomfortable with movement of torso with exam HEENT: Head atraumatic except bruise left forehead. Conjunctiva clear, no icterus. PEERL, EOMI. no rhinorrhea. MMM, OP benign. Neck is supple with no masses or lymphadenopathy, trachea midline LUNGS: CTAB with normal effort CV: RRR with no murmurs, gallops, or rubs. ABD: active bowel sounds, soft, nontender and nondistended. No masses. EXT: no cyanosis, clubbing, or edema MSK: No joint redness or swelling, tender in thoracic spine NEURO: CN 2-12 grossly intact. 4/5 LLE weakness with plantar flexion (pt states this is 2/2 toe injury) Normal speech and coordination. No tremor SKIN: No rashes or open wounds. PSYCH: normal mood and affect Objective Last Vital Signs Temp 36.4 C L 06/23/24 07:16 Pulse 54 L 06/23/24 07:16 Resp 16 06/23/24 07:16 BP 134/60 06/23/24 07:16 Pulse Ox 94 06/23/24 07:16 Laboratory Results - last 24 hr 06/22/24 12:38 WBC 9.14 RBC 4.63 Hgb 13.7 Hct 41.0 MCV 89 MCH 29.6 MCHC 33.4 RDW 14.1 Plt Count 233 MPV 11.9 H Immature Gran % 0.9 Neutrophils % 75.2 Lymphocytes % 14.9 Monocytes % 7.5 Eosinophils % 0.8 Basophils % 0.7 Nucleated RBC % 0.0 Absolute Neutrophils 6.88 H Absolute Lymphocytes 1.36 Absolute Monocytes 0.69 Absolute Eosinophils 0.07 Absolute Basophils 0.06 Sodium 143 Potassium 3.8 Chloride 105 Carbon Dioxide 29.3 Anion Gap 8.7 BUN 22 H Creatinine 0.8 Est GFR (CKD-EPI 2020) 81.72 Glucose 112 H Calcium 9.7 Total Bilirubin 0.44 AST 27 ALT 38 Alkaline Phosphatase 70 Total Protein 7.5 Albumin 4.1 ABO/Rh O Positive Antibody Screen NEGATIVE PAWSS Have you Been Recently Intoxicated or Drunk Within the Last 30 days?: Unable to Obtain Have you Ever Experienced Previous Episodes of Alcohol Withdrawal?: Unable to Obtain Have you ever Experienced Withdrawal Seizures?: Unable to Obtain Have you ever Experienced Delirium Tremens(DT)s?: Unable to Obtain Have you ever undergone Alcohol Rehabilitation Treatment (i.e, inpt ot outpatient treatment programs)?: Unable to Obtain Have you ever Experienced Blackouts?: Unable to Obtain Have you ever Combined Alcohol with other Downers within the last 90 days?: Unable to Obtain Have you ever Combined Alcohol with any other Substance of Abuse during the last 90 days?: Unable to Obtain Positive Blood Alcohol level on Presentation? [PCS.BAL]: Unable to Obtain Evidence of Increased Autonomic Activity (i.e. HR>120, tremor, sweating, agitation, nausea)?: Unable to Obtain Time Spent with Patient Time Spent with Patient: 25-34 minutes Time was spent: preparing to see the patient(eg.review tests), ordering medications,tests, procedures, referring, communicating with other health director of health care marketing, indepentently interpreting results, counseling the patient and care coordination
--- NOTE | 2024-06-23 10:20 | IN_ITS ---
PT Notes Visit Reasons: T8 vertebral body fracture Physical Therapy Initial Evaluation Date: 06/23/2024 Referring Doctor: Dr. Hutton PT Orders: PT CONSULT: Eval for assistive device, safety consult for discharge Precautions: Standard Patient Profile/Admitting Diagnosis: [] patient is 63-year-old female presented to the ED via EMS status post fall down 3 stairs with impact to her back, right elbow and positive head strike. She was initially placed in a c-collar which was removed after imaging showed no cervical spine deficits. X-ray of right elbow negative for fracture. Chest CT revealed acute fracture anterior aspect T8 vertebral body. CT of the head showed no acute processes. Ortho consult with [facility] revealed concern for posterior fusion and potential unstable fracture and therefore recommended an MRI. MRI was completed with a negative finding for full-thickness fracture of T8 vertebral body. Patient was admitted for observation for pain management to the Medr unit PMHX: Social History/Home Situation: Patient resides with her mother in a trailer with ramp access. Patient independent ambulation without device independent ADLs independent meal prep independent shopping. Patient drives. Patient assist mother with care. 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 Equipment Owned/DME: Commode, wheelchair, FWW, canes from former family member who she was also taking care of. 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 Patient reports she has been out of bed to bathroom with the FWW with nursing staff several times during the night and this morning Objective: General Observation: Alert female side-lying in bed with IV access in place. thumb spica splint noted to left hand patient reports recent injection due to arthritic joint Mental Status: Alert and oriented x 4 cooperative; agreeable to participate and motivated to go home Pain: 3/10 mid back when leaning forward in seated position ROM: [] Right Upper Extremity: Within functional limits Left Upper Extremity: Within functional limits Right Lower Extremity: Within functional limits Left Lower Extremity: Within functional limits Strength: [] Right Upper Extremity: > 3/5 no resistance secondary to new T8 fracture Left Upper Extremity: > 3/5 no resistance secondary to new T8 fracture Right Lower Extremity: > 3/5 no resistance secondary to new T8 fracture Left Lower Extremity: > 3/5 no resistance secondary to new T8 fracture Sensation: Intact Bed Mobility/Transfers: Supine to sit independent via logroll Sit to stand independent Stand to sit independent Bed to chair independent with and without FWW Gait: Patient ambulated 200 feet with FWW standby assist reciprocal gait pattern on level surfaces including turns demonstrates no loss of balance no increased pain no dizziness Balance: Static Sitting: Normal Dynamic Sitting: Fair plus limited by pain Static Standing: Normal Dynamic Standing: Good Special Tests: 4 STAGE BALANCE TEST: Feet together 10 seconds 1/2 Stance 8 seconds Tandem stance 7 seconds Single leg stance left for seconds, right 6 seconds Mobility Limitations Standardized Measure [] [facility] AM-PAC 6 clicks Basic Mobility Inpatient Short Form: [] Raw Score: 23 CMS Score: 11.20% Informed Consent/Education: Patient instructed in purpose of PT consult. Treatment: Therapeutic activity 66369: Transfers with and without FWW standby assist from various surfaces to simulate mobility within home Facilitated safe and correct performance of level surface ambulation covering a distance of 200 feet using use front wheeled walker with SBA and wheelchair follow for safety. Did not report of any increased pain. Denied headache, chest pain, and lightheadedness throughout activity. Minimal verbal cueing provided f or AD management, directional changes, and posture. Assessment: Patient is 63-year-old female presenting status post fall with T8 vertebral body fracture and bradycardia Patient presents with clinical signs and symptoms consistent with current/admitting diagnoses that have resulted to mobility limitations, gait instability, generalized weakness, and impairment of motor control as demonstrated by the following impairment level findings: 1. Pain mid back/thoracic spine 2. Impaired standing balance 3. Impaired functional activity tolerance Impairments are contributing to the following functional limitations: 1. Inability to safely ambulate without assistive device 2. Increase completion time for mobility ADL performance 3. Increased fall risk Patient is assessed as a low complexity based on the following: History: 63-year-old female with impairment level findings, functional limitations, and past medical history as indicated above Examination: Demonstrable impairment in strength, balance, and mobility level with underlying impairments and functional limitations as documented above Presentation: Evolving Decision Making: Low Goals: 1. Independent ambulation with least restrictive device level surfaces 300 feet 2. Demonstrate carryover of no bending and twisting during functional tasks to reduce pain in thoracic spine Plan of Care/Treatment Plan: 1-2x/day, 7 days/week x 1 week. Plan of care has been reviewed with the SECURITY EXPERT providing the service under Physical Therapy direction. Initiate Physical Therapy intervention for strengthening, bed mobility, transfers, gait, stairs, balance training, use of assistive device. DISCHARGE RECOMMENDATIONS: Home with outpatient PT TREATMENT CODE/TIME: 73914, [id number] Thank you for the opportunity to participate in the care of this patient Sarah Agee, PT [facility]
--- NOTE | 2024-06-23 11:41 | CMDISCH_ITS ---
Date of service: 06/24/24 Time of Service: 09:00 LACE Index Scoring Tool Questions: Length of Stay (in days): 1 Was the patient admitted via the E.D.?: Yes E.D. Visits: 1 Answers: Total Score: 5 Risk of Readmission: Low Risk Care Management Discharge Plan Reason for Hospitalization: T8 fracture Discharge Plan: Discharge home via private vehicle with daughter. PCP follow up and outpatient PT is recommended, please contact offices on Tuesday. No [facility] s ervices are ordered at the time of this discharge. Patient/Family Education Needs: Review discharge instructions, limitations, medications and plan to follow up with community providers. Discuss ask me three. SDOH Health Related Social Needs: No Data to Display
[2024-06-23] MEDS: Lidocaine 5% Patch 1 PATCH TP (11:49)
[2024-06-23] MEDS: Calcitonin-Salmon, Synthetic 3.7 ML BTL NS (15:10)
[2024-06-23] MEDS: Docusate Sodium 100 MG CAP PO (15:17)
[2024-06-23] MEDS: Gabapentin 300 MG CAP PO (20:25)
[2024-06-23] MEDS: LORazepam 0.5 MG TAB PO (20:25)
[2024-06-23] MEDS: Lidocaine Patch Removal 1 EACH TP (20:47)
[2024-06-23] MEDS: Ibuprofen 600 MG TAB PO (22:32)
[2024-06-24 02:58] VITALS: BP 135/64; PULSE 50; RESP 15; TEMP 36.2; O2SAT 89
[2024-06-24 03:11] VITALS: PULSE 50; O2SAT 93
[2024-06-24] MEDS: Acetaminophen 325 MG TAB 650 MG PO ×2 (03:20→07:54)
[2024-06-24 07:15] VITALS: BP 139/73; PULSE 58; RESP 16; TEMP 36.4; O2SAT 94
[2024-06-24] MEDS: Calcitonin-Salmon, Synthetic 3.7 ML BTL NS (07:53)
[2024-06-24] MEDS: Gabapentin 300 MG CAP 600 MG PO (07:54)
[2024-06-24] MEDS: Potassium Chloride 20 MEQ TABCR PO (07:54)
[2024-06-24] MEDS: Vitamins B Comp w/C TAB 1 TAB PO (07:54)
[2024-06-24] MEDS: Omeprazole 20 MG CAPCR 40 MG PO (07:54)
[2024-06-24] MEDS: Multivitamin TAB 1 TAB PO (07:55)
[2024-06-24] MEDS: Losartan 50 MG TAB 100 MG PO (07:55)
[2024-06-24] MEDS: Citalopram 20 MG TAB PO (07:55)
[2024-06-24] MEDS: hydroCHLOROthiazide 25 MG TAB PO (07:55)
[2024-06-24] MEDS: Docusate Sodium 100 MG CAP PO (07:55)
[2024-06-24] MEDS: Normal Saline Flush 10 ML SYR IVP (07:56)
[2024-06-24 09:37] VITALS: O2SAT 95
--- NOTE | 2024-06-24 09:44 | PT.INTREAT ---
PT Notes Visit Reasons: T8 vertebral body fracture Inpatient Physical Therapy Treatment Note [facility] Date: 06/24/2024 PRECAUTIONS: Standard precautions telemetry IV access left upper extremity SUBJECTIVE: Patient reports she slept well last night she just feels tired and reports it is due to boredom OBJECTIVE: Patient presents seated in chair with eyes closed easily woken agreeable to participate? PAIN: 07/23 VITALS: ?Monitored via telemetry throughout Therapeutic Activities (36574p[]): Direct one-on-one instruction in dynamic activities to improve functional performance. Functional -transfers from various surfaces including tub bench, toilet, chair, bed, chair without arms independent with proper hand placement as noted - Facilitated safe and correct performance of level surface ambulation covering a distance of 300 feet x 1 then 126 feet x 1 using use front wheeled walker with supervision Did not report of any increased pain. Patient noted heaviness in right lower extremity after first distance walked. Denied headache, chest pain, and lightheadedness throughout activity. Occasional verbal cueing provided for AD management, directional changes, and posture. ? Therapeutic Exercises (52044v): Direct one-on-one instruction in therapeutic exercises to develop strength, endurance, range of motion and flexibility. ? Exercises ?modified Seated sciatic nerve glide BLE 3 x 30 seconds x 2 sets pre and post ambulation - position modified with back straight and chin tucked d/t new T8 fracture or perform initially with back supported. Modified Seated figure 4 stretch 3 x 30 seconds x 2 sets pre and post ambulation ? - keep back straight ? Provided skilled instruction in proper exercise performance ASSESSMENT: Patient demonstrating signs and symptoms consistent with right sciatica which patient has a history of. Patient instructed in sciatic nerve glide seated with positive effect. Patient also instructed in seated figure 4 stretch. Patient able to ambulate second distance to shower room without complaints of heaviness in the leg after performing nerve glide and figure 4 stretches. Anticipate patient to be discharged to home today if medically appropriate PLAN: 1-2x/day, 7 days/week x 1 week. Plan of care has been reviewed with the CALL CENTER TEAM LEADER providing the service under Physical Therapy direction. Initiate Physical Therapy intervention for strengthening, bed mobility, transfers, gait, stairs, balance training, use of assistive device. TREATMENT CODE/TIME: 90738, 55061 / [id number] DISCHARGE RECOMMENDATION:Home with outpatient PT for management of sciatica
--- NOTE | 2024-06-24 09:52 | DSE_ITS ---
Date of service: 06/24/24 Time of Service: 09:52 DS: Diagnosis Discharge Diagnosis (1) Closed fracture of T8 vertebra: Status: Acute (2) Lumbar disc disease with radiculopathy: Status: Acute (3) GERD (gastroesophageal reflux disease): Status: Chronic (4) Depression: Status: Chronic (5) Essential hypertension: Status: Acute (6) DVT prophylaxis: Status: Acute Discharge Plan Disposition Patient Disposition: Home Condition: Improving Discharge Details Reason For Visit: T8 vertebral body fracture Admit Date/Time: 06/22/24 20:18 Admit Provider: Surya Hutton Attending Provider: Surya Hutton Primary Care Provider: Molly Ross Hospital Course Hospital Course: This patient is a 63-year-old female who was admitted to the hospital service after sustaining a fall and subsequent T8 fracture. The patient was admitted for pain control. In my discussion with the patient though she states she has h ad multiple episodes of presyncope versus syncope. She was noted to be somewhat bradycardic and I monitor overnight on telemetry. Patient did not show any dysrhythmias and asked to be discharged on the . I agreed to the discharge as the patient did well with physical therapy. I sent prescriptions to her pharmacy for pain control, constipation, and a lidocaine patch. Home Meds and New Rx's Prescriptions: New calcitonin (salmon) 200 unit/actuation [facility],Non-Aerosol 1 spray NS DAILY Qty: 3.7 0RF hydrocodone-acetaminophen 7.5-325 mg Tablet 1 tab PO Q6H PRN PRNQty: 14 0RF lidocaine 5 % Adhesive Patch,Medicated 1 patch topical Q24H Qty: 15 0RF docusate sodium [Colace] 100 mg Capsule 100 mg PO TID Qty: 30 0RF Continued vitamin B complex [B Complex-Vitamin B12] tablet 1 tab PO DAILY multivitamin [Daily Multi-Vitamin] Tablet 1 tab PO DAILY losartan 100 mg tablet 100 mg PO DAILY Qty: 90 4RF trazodone 50 mg tablet 50 - 100 mg PO QHS Qty: 180 5RF gabapentin 300 mg capsule 300 mg PO as directed Qty: 270 4RF Rx Instructions: 1 tab pm2 tab am omeprazole 40 mg capsule,delayed release(DR/EC) 40 mg PO DAILY Qty: 90 3RF citalopram 20 mg tablet 20 mg PO DAILY Qty: 90 4RF potassium chloride 20 mEq tablet extended release 20 meq PO DAILY Qty: 90 5RF hydrochlorothiazide 25 mg tablet 25 mg PO DAILY Qty: 90 4RF ibuprofen 600 mg tablet 600 mg PO BID PRN Discontinued acetaminophen [Acetaminophen Extra Strength] 500 mg tablet 1,000 mg PO QID PRNQty: 100 Discharge Instructions Additional Instructions: Please do not return to work until you are cleared by your primary care provider Stand Alone Forms: Nursing Discharge Form Referrals: Molly Ross MD, [place] [Primary Care Provider] - (Please call the office on Tuesday to set up a hospital follow up within 7-10 days) Activity:: Activity as Tolerated Equipment/Supplies:: No Equipment Needed Diet:: As Tolerated Discharge Orders Discharge Orders: Discharge Order (Routine); Ordered 06/24/24 Ordered By: Indio Hurst DS: Summary Time Spent with Patient providing and/or coordinating discharge services: Greater than 30 minutes Status at Discharge Functional status at discharge: independent ambulation Overall status at discharge: patient is progressing back to baseline Mental Status: mental status grossly normal Speech and Movement: speech and movement normal Mood: congruent mood Affect: normal affect Quality:SDOH Health Related Social Needs: No Data to Display Exam Psych Mental Status: mental status grossly normal Speech and Movement: speech and movement normal Mood: congruent mood Affect: normal affect DS: Data Vitals/I&O Vitals and I&O: Vital Signs Temperature 36.4 C L 06/24/24 07:15 Temperature Source Temporal Artery Scan 06/24/24 07:15 Pulse 58 L 06/24/24 07:15 Pulse Rhythm Regular 06/22/24 21:44 Pulse 49 L 06/22/24 16:16 Respiratory Rate 16 06/24/24 07:15 Respiratory Effort Normal, Non-Labored 06/22/24 21:44 Respiratory Depth Normal 06/22/24 21:44 Respiratory Pattern Normal 06/22/24 21:44 Blood Pressure 139/73 06/24/24 07:15 Blood Pressure Mean 87 06/22/24 20:02 Blood Pressure Position Sitting 06/22/24 11:14 Pulse Oximetry 95 06/24/24 09:37 Oxygen Delivery Method Room Air 06/24/24 09:37 Oxygen Flow Rate 0 06/24/24 09:37 Pain Level 0 06/24/24 08:07 Comment Pt resting. also given dilaudid. Placed on O2 06/22/24 13:30 Intake & Output 06/23/24 06/23/24 06/24/24 11:59 23:59 11:59 Intake Total 50 / 100 600 / 600 Balance 50 / 100 600 / 600 Intake: IV 50 / 100 100 / 100 Oral 500 / 500 Other: Urine Color Yellow Yellow Yellow Urine Appearance Clear Clear Urine Odor Normal Normal Normal Comment VOID INTO TOILET. UNKNOWN AMT Voided into toilet, unable to measure. pt voided x1 PFSH All Active Problems (Updated 06/22/24 @ 22:36 by Surya Hutton) DVT prophylaxis (Acute) Fall (Acute) Closed fracture of T8 vertebra (Acute) Thoracic back pain (Acute) GERD (gastroesophageal reflux disease) (Chronic) Chronic diarrhea (Chronic) De Quervain's tenosynovitis, left (Chronic) Steroid injection: 12/12/2023 Stress due to illness of family member (Acute) Family history of breast cancer in first degree relative (Acute) Sister HERS 2 Shingles rash (Acute) Fall (Acute) Thumb pain (Acute) Grief (Chronic) Abscess (Acute) Gall bladder disease (Acute) Fatty liver (Acute) Abnormal chest x-ray (Acute 08/26/16) Grief (Acute) Essential hypertension (Acute) Cardiac risk alfonso - 7.3% Depression (Chronic) Annual physical exam (Acute 01/10/17) Left arm numbness (Acute 07/11/17) Low back pain due to displacement of intervertebral disc (Acute 11/22/12) vacuum disc 02/25 L3-4 disc herniation by MRI 03/27 Lumbar disc disease with radiculopathy (Acute 04/03/15) L3-4 disc herniation Shoulder joint pain (Acute 11/22/12) Medical History (Updated 06/22/24 @ 22:36 by Surya Hutton) COVID-19 (~01/2021) Surgical History (Updated 06/22/24 @ 22:33 by Surya Hutton) S/P tubal ligation BACK SURGERY Family History Mother No problems noted. Father , age 59 Neoplasm KIDNEY Cancer of kidney Sister Breast cancer Brother Heart disease Brother No problems noted. Brother No problems noted. Son No problems noted. Daughter No problems noted. Maternal Grandfather Cancer Paternal Grandfather No problems noted. Maternal Grandmother Asthma Paternal Grandmother No problems noted. 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 [employer] Pets and animals: No Sexually active: Yes Do you think of yourself as: straight/heterosexual Current gender identity: female What is your relationship status?: How often do you talk on the phone with friends or family?: three or more times per week How often do you get together with friends or relatives?: three or more times per week How often do you attend confucianist or mandaeism services?: decline to answer Do you belong to any clubs or organized social groups?: no Panel score (0-1 are the most socially isolated patients): 1 What type of physical activity do you participate in: none Sarah/Quaker: No preference Special sarah needs: No Seatbelt use: always Helmet use: Yes Helmet use: always Drive intox or ride w/intox warehouse associate driver: No Do you feel safe at home: Yes Do you feel safe in your relationship?: Yes Victim of physical abuse: No Victim of emotional abuse: No Victim of sexual abuse: No Would you like helpful sources: No Additional Social history: Lives in [place], mother also in home, 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 Time Spent with Patient Time Spent with Patient: 45-69 minutes Time was spent: preparing to see the patient(eg.review tests), obtaining and/or reviewing separately otained hiistory, ordering medications,tests, procedures, referring, communicating with other health health care liaison, indepentently interpreting results, counseling the patient and care coordination
[2024-06-24] MEDS: Lidocaine 5% Patch 1 PATCH TP (10:07)
[2024-06-24 11:15] VITALS: BP 114/65; PULSE 57; RESP 16; TEMP 36.4; O2SAT 93
== END 2024-06-24 11:30 | disposition home or self-care (01) ==
LOC: ER 20:55 → MS 21:38
PROVIDERS: Student in an Organized Health Care Education/Training Program; Admitting Provider Family Medicine; Emergency Provider Emergency Medicine; PCP Family Medicine; Visit Provider Family Medicine
DX: S22.068A Other fracture of T7-T8 thoracic vertebra, initial encounter for closed fracture (principal); M51.16 Intervertebral disc disorders with radiculopathy, lumbar region; F32.9 Major depressive disorder, single episode, unspecified; I10 Essential (primary) hypertension; K21.9 Gastro-esophageal reflux disease without esophagitis; W10.8XXA Fall (on) (from) other stairs and steps, initial encounter; M25.521 Pain in right elbow; M25.562 Pain in left knee; K52.9 Noninfective gastroenteritis and colitis, unspecified; K76.0 Fatty (change of) liver, not elsewhere classified; Z87.891 Personal history of nicotine dependence; Z79.899 Other long term (current) drug therapy; S00.83XA Contusion of other part of head, initial encounter; G89.11 Acute pain due to trauma; R00.1 Bradycardia, unspecified; R55 Syncope and collapse
CPT/HCPCS: 00123; 36415; 74177; 80053; 86850; 86900; 86901; 96374; 96375; 97110; 97161; 97530; 99285; J1650; 70450; 71260; 72125; 72146; 73080; 85025; 99223; 99232; 99239; G0378; J0131; J1171; J1885; J3490

== ENCOUNTER 2024-09-12 02:54 | Outpatient (CLI) | payer BC, SELFPAY ==
[2024-09-12 12:44] LABS: Hemoglobin A1C 6.3 % (<5.7)
[2024-09-12 12:51] LABS: ALT 34 U/L (14-59); AST 19 U/L (15-37); Albumin 4.1 g/dL (3.4-5.0); Alkaline Phosphatase 74 U/L (46-116); Anion Gap 9.2 mmol/L (3-11); BUN 21 mg/dL (7-18); Bilirubin, Total 0.4 mg/dL (0.2-1.0); CO2 29.8 mmol/L (21.0-32.0); CREATININE 0.7 mg/dL (0.55-1.02); Calcium 9.4 mg/dL (8.5-10.1); Calculated LDL 153 mg/dL (<100); Chloride 105 mmol/L (98-107); Cholesterol 268 mg/dL (<200); Estimated GFR 95.32 (mL/min/1.73m2); Glucose 129 mg/dL (74-106); HDL Cholesterol 56 mg/dL (>or=50); Potassium 3.9 mmol/L (3.5-5.1); Sodium 144 mmol/L (136-145); Total Protein 7.6 g/dL (6.4-8.2); Triglyceride 295 mg/dL (<150)
[2024-09-13 12:57] LABS: Albumin 62.6 % (55.8-66.1); Albumin g/dL 4.5 g/dL (3.6-5.2); Total Protein 7.2 g/dL (6.3-8.2)
[2024-09-14 10:09] LABS: TSH (W/Ref FT4) 3.72 uIU/mL (0.36-3.74); Vitamin B12 1322 pg/mL (193-986)
== END 2024-09-12 02:55 | disposition home or self-care (01) ==
LOC: LOS 02:54
PROVIDERS: PCP Family Medicine; Visit Provider Family Medicine
DX: S22.068A Other fracture of T7-T8 thoracic vertebra, initial encounter for closed fracture (principal); I10 Essential (primary) hypertension; E11.9 Type 2 diabetes mellitus without complications
CPT/HCPCS: 36415; 80053; 80061; 82607; 83036; 84165; 84443

== ENCOUNTER 2024-10-19 01:22 | Outpatient (CLI) | payer BC, SELFPAY ==
[2024-10-19 12:45] LABS: ALT 27 U/L (14-59); AST 20 U/L (15-37); Albumin 4.3 g/dL (3.4-5.0); Alkaline Phosphatase 64 U/L (46-116); Anion Gap 7.4 mmol/L (3-11); BUN 26 mg/dL (7-18); Bilirubin, Total 0.5 mg/dL (0.2-1.0); CO2 30.6 mmol/L (21.0-32.0); CREATININE 0.9 mg/dL (0.55-1.02); Calcium 9.4 mg/dL (8.5-10.1); Chloride 105 mmol/L (98-107); Estimated GFR 70.51 (mL/min/1.73m2); Glucose 129 mg/dL (74-106); Potassium 4.1 mmol/L (3.5-5.1); Sodium 143 mmol/L (136-145); Total Protein 7.6 g/dL (6.4-8.2)
== END 2024-10-19 01:23 | disposition home or self-care (01) ==
LOC: LOS 01:22
PROVIDERS: PCP Family Medicine; Visit Provider Family Medicine
DX: I10 Essential (primary) hypertension (principal)
CPT/HCPCS: 36415; 80053

== ENCOUNTER 2024-12-06 00:19 | Outpatient (CLI) | payer BC, SELFPAY ==
--- NOTE | 2024-12-06 15:20 | DI.MAMMO_ITS ---
Exam(s) MAMMO SCREENING EXAM: MAMMO SCREENING CLINICAL HISTORY: screening,Z12.39 TECHNIQUE: Mammograms were interpreted according to the usual protocol including computer analysis with CAD system, tomosynthesis and C-view imaging. COMPARISON: 2015 through 2022 FINDINGS: The breasts are composed of mainly fatty density , Breast Density category A. No suspicious masses or suspicious microcalcifications are seen. No skin thickening or abnormal axillary lymph nodes are seen. There has been no significant change from prior exams. IMPRESSION: BI-RADS Category 1, Negative mammogram Yearly screening mammography is recommended. Breast Density- Category A - The breast are almost entirely fatty. Breast density Category C or D implies that the patient has dense breast tissue. Dense breast tissue can make it harder to find cancer on a mammogram. Dense breast tissue is also associated with an increased risk of breast cancer. This information about the result of the mammogram report was provided to the patient to raise their awareness. Use this report when you speak with the patient about their risks for breast cancer, which includes their family history. At that time, you may recommend additional screening tests (Ultrasound or MRI) as these tests may add significant information. A negative radiographic report should not delay biopsy if a dominant or clinically suspicious mass is present. Up to ten percent of cancers are not identified on mammography. A negative report may reinforce clinical impression. Adenosis and dense breasts may obscure an underlying neoplasm. False positive reports average 6 to 10%. Patient will receive a letter notifying them of these results.
== END 2024-12-06 00:39 ==
LOC: DI 00:20
PROVIDERS: PCP Family Medicine; Visit Provider Family Medicine
DX: Z12.31 Encounter for screening mammogram for malignant neoplasm of breast (principal); R92.313 Mammographic fatty tissue density, bilateral breasts
CPT/HCPCS: 77063; 77067

== ENCOUNTER 2025-02-15 05:29 | Outpatient (CLI) | payer BC, SELFPAY ==
--- NOTE | 2025-02-15 15:32 | DI.RAD_ITS ---
Exam(s) XR KNEE RT 3V AP,LAT,JUAN J EXAM: XR KNEE RT 3V AP,LAT,JUAN J CLINICAL HISTORY: r knee pain, M25.561. TECHNIQUE: 2D digital imaging was performed. Three views. COMPARISON: No exams were available for comparison FINDINGS: BONES: No acute fracture is present. No bony destructive lesion is seen. JOINTS: The femoral tibial joint spaces are maintained. There is mild periarticular spurring. There is also spurring at the articular aspect of the patella.. No joint effusion is seen. SOFT TISSUE: Normal. IMPRESSION: Mild degenerative changes. DATA REPOSITORY: RADIATION DOSE DELIVERED:
== END 2025-02-15 05:49 ==
LOC: DI 05:29
PROVIDERS: PCP Family Medicine; Visit Provider Family Medicine
DX: M25.561 Pain in right knee (principal)
CPT/HCPCS: 73562

== ENCOUNTER 2025-02-16 14:12 | Outpatient (CLI) | payer BC, SELFPAY ==
--- NOTE | 2025-02-16 14:15 | DI.RAD_ITS ---
Exam(s) XR CHEST 2V PA LATERAL EXAM: XR CHEST 2V PA LATERAL CLINICAL HISTORY: SOB, wheezing TECHNIQUE: 2D digital imaging was performed. Two views. COMPARISON: CT CT CHEST/ABD/PEL W from 06/22/2024 FINDINGS: HEART: Normal size. Aorta: Not dilated. PULMONARY VASCULATURE: Normal. MEDIASTINUM: Unremarkable. LUNGS: Clear. PLEURAL SPACE: No pleural effusion or pneumothorax. BONE:Unremarkable for age. SOFT TISSUES: Unremarkable. IMPRESSION: No acute abnormality. The preliminary [facility] report was reviewed. DATA REPOSITORY: RADIATION DOSE DELIVERED:
--- NOTE | 2025-02-18 09:40 | DI.[facility]_ITS ---
PROCEDURE INFORMATION: Exam: XR Chest Exam date and time: 02/16/2025 2:26 PM Age: 64 years old Clinical indication: Shortness of breath and wheezing TECHNIQUE: Imaging protocol: Radiologic exam of the chest. Views: 2 views. COMPARISON: CT CHEST/ABD/PEL W 06/22/2024 1:03 PM FINDINGS: Lungs: Unremarkable. No consolidation. Pleural spaces: Unremarkable. No pleural effusion. No pneumothorax. Heart/Mediastinum: Unremarkable. No cardiomegaly. Bones/joints: Unremarkable. IMPRESSION: No evidence for acute abnormality in the chest. Dictated and Authenticated by: Izzy Talley MD. Orderin Shoshana Crum MD
== END 2025-02-16 14:32 ==
LOC: DI 14:12
PROVIDERS: PCP Family Medicine; Visit Provider Physician Assistant
DX: R06.2 Wheezing (principal)
CPT/HCPCS: 71046

== ENCOUNTER 2025-03-05 00:55 | Outpatient (CLI) | payer BC, SELFPAY ==
--- NOTE | 2025-03-05 05:30 | DI.MRI_ITS ---
Exam(s) MR LUMBAR SPINE WO EXAM: MR LUMBAR SPINE WO CLINICAL HISTORY: right LBP and r sciatica,lumbar disc disease with radiculopathy,m51.16,m51.. TECHNIQUE: Multiplanar multisequence MRI of the Lumbar spine was performed. COMPARISON: MR MRI - LUMBAR SPINE WO CONTRAST from 04/03/2015 FINDINGS: Bones: The last intervertebral disc space is designated the L5/S1 level for the numbering purpose of this examination. The vertebral body heights are well maintained. Alignment: Levoscoliosis secondary to asymmetric degenerative disc changes. The marrow signal characteristics are unremarkable. There is a hemangioma in T12. Cord: The conus tip ends at the T12 level. It is of normal size and signal intensity. T12-L1: No focal disc herniation is present. No central spinal canal stenosis.No neural foraminal stenosis. L1-2: No focal disc herniation is present. No central spinal canal stenosis.No neural foraminal stenosis. L2-3: No focal disc herniation is present. No central spinal canal stenosis.No neural foraminal stenosis. L3-4: There is severe loss of disc height and prominent endplate osteophytes which are eccentric toward the right. This causes levoscoliosis. There is a right paracentral disc herniation which appears similar to the previous exam. There is again noted to be severe central canal stenosis. There is also severe right neural foraminal narrowing secondary to combination of disc osteophytes and facet spurring. L4-5:Mild loss of disc height eccentric toward the right. Small endplate osteophytes. Facet degenerative changes hypertrophy. No focal disc herniation is present. Mild spinal canal stenosis.Mild right neural foraminal stenosis. L5-S1: Moderate loss of disc height, eccentric toward the left. Endplate osteophytes are present at on the left. There are mild facet joint degenerative changes.No focal disc herniation is present. No central spinal canal stenosis.Moderate to severe left neural foraminal stenosis. The visualized SI joints and sacrum are unremarkable. Soft tissues: The paraspinal soft tissues are unremarkable. IMPRESSION: Large right paracentral disc herniation L3-4 has a similar appearance to the previous exam. There is severe central canal stenosis and severe right neural foraminal narrowing. Combination degenerative changes cause mild central canal stenosis at L4-5. Degenerative changes at L5-S1 cause moderate to severe left neural foraminal narrowing. DATA REPOSITORY:
== END 2025-03-05 01:15 ==
LOC: DI 00:55
PROVIDERS: PCP Family Medicine; Visit Provider Family Medicine
DX: M51.16 Intervertebral disc disorders with radiculopathy, lumbar region (principal)
CPT/HCPCS: 72148

== ENCOUNTER → 2025-04-30 02:06 | Outpatient (CLI) | payer BC, SELFPAY ==
--- NOTE | 2025-04-30 | DI.RAD_ITS ---
Exam(s) XR LUMBAR SPINE COMPLETE EXAM: XR LUMBAR SPINE COMPLETE CLINICAL HISTORY: LUMBAR DISC HERNIATION WITH RADICULOPATHY,M51.16,EVALUATE SPINAL INSTABILIT. TECHNIQUE: 2D digital imaging was performed. AP view. Standing lateral views in neutral, flexion and extension. COMPARISON: MR MR LUMBAR SPINE WO from 03/05/2025 FINDINGS: There is no abnormal subluxation with flexion or extension. There are advanced degenerative disc changes at L3-4 and L5-S1. There are severe facet joint degenerative changes throughout. Mild degenerative scoliosis. IMPRESSION: Advanced degenerative changes. No visible spinal instability. DATA REPOSITORY: RADIATION DOSE DELIVERED:
== END ==
LOC: DI 02:06
PROVIDERS: PCP Family Medicine; Visit Provider Physician Assistant
DX: M51.16 Intervertebral disc disorders with radiculopathy, lumbar region (principal); M51.360 Other intervertebral disc degeneration, lumbar region with discogenic back pain only
CPT/HCPCS: 72110